=== PATIENT | female | born 1935 | race Caucasian/White ===

== ENCOUNTER → 2017-11-14 16:33 | Outpatient (CLI) | payer MEDICARE, OTHER, SELFPAY ==
--- NOTE | 2017-11-14 | DI.RAD.S_ITS ---
PROCEDURE: XR FOOT LT MIN 3V INDICATIONS: 82 year-old female with dorsal left foot pain. TECHNIQUE: 3 views of the foot were acquired. COMPARISON: None. FINDINGS: Bones: No fractures or dislocations. No suspicious bony lesions. Soft tissues: No tibiotalar joint effusion. Achilles tendon appears normal. IMPRESSION: No imaging explanation for dorsal left foot pain. Dictated by: Bunny Blair M.D. on 11/15/2017 at 7:35 Approved by: Bunny Blair M.D. on 11/15/2017 at 7:36
--- NOTE | 2017-11-14 | DI.RAD.S_ITS ---
PROCEDURE: XR ANKLE LT MIN 3V INDICATIONS: 82 year-old female with anterior left ankle pain. TECHNIQUE: 3 views of the ankle were acquired. COMPARISON: None. FINDINGS: Bones: No fractures or dislocations. Ankle mortise is normally aligned. No tibiotalar joint degeneration. No suspicious bony lesions. Soft tissues: No tibiotalar joint effusion. Achilles tendon appears normal. IMPRESSION: No imaging explanation for left ankle pain. Dictated by: Bunny Blair M.D. on 11/15/2017 at 7:36 Approved by: Bunny Blair M.D. on 11/15/2017 at 7:37
== END ==
PROVIDERS: PCP Family Medicine; Visit Provider Family Medicine
DX: M25.572 Pain in left ankle and joints of left foot (principal)
CPT/HCPCS: 73610; 73630

== ENCOUNTER 2018-02-08 15:14 | Emergency (ER) | payer MEDICARE, OTHER, SELFPAY ==
[2018-02-08] VITALS (9 sets, daily range): BP systolic 103–156; BP diastolic 54–97; PULSE 66–92; RESP 12–21; TEMP 37; O2SAT 95–100
--- NOTE | 2018-02-08 15:27 | DI.CT.S_ITS ---
PROCEDURE: CT HEAD/BRAIN WO CON INDICATIONS: found down altered mental status TECHNIQUE: Noncontrast 4.5 mm thick angled axial sections acquired from the foramen magnum to the vertex, with coronal and sagittal reformats. For radiation dose reduction, the following was used: automated exposure control, adjustment of mA and/or kV according to patient size. COMPARISON: [facility], CR, XR CHEST 1V, 02/08/2018, 15:18. [facility], CT, HEAD WITHOUT CONTRAST, 05/06/2017, 14:45. FINDINGS: Image quality: There is motion artifact seen involving the anterior aspects of this scan. CSF spaces: Basal cisterns are patent. No extra-axial fluid collections. The ventricles are symmetric in size and shape. Brain: No intracranial bleeds or masses. There is cerebral volume loss for age, with resultant ventricular and sulcal prominence. There are periventricular and deep white matter chronic small vessel ischemic changes. There is intracranial internal carotid artery atherosclerosis. Skull and face: Calvarium and visualized facial bones appear intact, without suspicious lesions. Incidental note is made of hyperostosis frontalis. This is not considered to be pathologic in a woman of this age. Sinuses: Visualized sinuses and mastoids are clear. IMPRESSION: No acute intracranial hemorrhage can be seen. No acute intracranial process is seen. Note is made of age-appropriate brain parenchymal volume loss and chronic small vessel ischemic changes. No displaced calvarial fracture. Dictated by: Juan Evans M.D. on 02/08/2018 at 15:03 Approved by: Juan Evans M.D. on 02/08/2018 at 15:04
--- NOTE | 2018-02-08 15:27 | DI.RAD.S_ITS ---
PROCEDURE: XR CHEST 1V INDICATIONS: altered mental status TECHNIQUE: One view of the chest was acquired. COMPARISON: [facility], CT, CT HEAD/BRAIN WO CON, 02/08/2018, 15:39. [facility], CR, CHEST 2 VIEW, 09/27/2006, 16:03. [facility], , CHEST 2 VIEW, 10/17/2012, 19:46. FINDINGS: Surgical changes and devices: None. Lungs and pleura: No pleural effusions or pneumothorax. Lungs are clear. Mediastinum: The cardiac contours are within normal limits. The aorta demonstrates calcification and tortuosity. Bones and chest wall: Age-appropriate bony degenerative changes are seen. No suspicious bony lesions. Overlying soft tissues appear unremarkable. IMPRESSION: Portable chest within normal limits. Dictated by: Juan Evans M.D. on 02/08/2018 at 15:02 Approved by: Juan Evans M.D. on 02/08/2018 at 15:03
--- NOTE | 2018-02-08 15:47 | PC.NURSE ---
patient reports that she fell around 2am while she was up making soup and has been confused since. patients daughter went to visit found her confused, thought her blood sugar might have been low and got her something to eat but the patient was still confused.
--- NOTE | 2018-02-08 16:13 | ED.NEUROSD ---
HPI - Neuro Symptoms/Deficit General Chief Complaint: Neuro Symptoms/Deficit Stated Complaint: GLF/Confusion Time Seen by Provider: 02/08/18 15:22 Source: patient, family, EMS and old records reviewed Mode of arrival: EMS Limitations: altered mental status History of Present Illness HPI Narrative: Patient is an 82-year-old female brought in by EMS for altered mental status. She has extremely poor historian. 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 He was found in bed and she was on the floor both unable to get up. She remains extremely confused able to follow commands very pleasant not combative.. not able to give much more of a history. She previously was found down April 2017 with a broken ankle which required surgery. She was noted to be confused at that time as well. Related Data Home Medications Medication Instructions Recorded Confirmed alprazolam [Xanax] 0 mg PO PRN #0 12/18/12 02/08/18 metformin [Glucophage XR] 500 mg PO QID #0 12/18/12 02/08/18 glipizide [Glucotrol XL] 5 mg PO TID 02/08/18 02/08/18 metoprolol tartrate 50 mg PO BID 02/08/18 02/08/18 omeprazole 20 mg PO DAILY 02/08/18 02/08/18 thyroid (pork) [[place] Thyroid] 90 mg PO BID 02/08/18 02/08/18 Allergies Allergy/AdvReac Type Severity Reaction Status Date / Time ciprofloxacin [From CIPRO] Allergy Intermediate Unverified 09/20/17 12:56 codeine [CODEINE] Allergy Intermediate Unverified 09/20/17 12:56 Sulfa (Sulfonamide Allergy Mild Unverified 09/20/17 12:56 Antibiotics) [SULFA (SULFONAMIDE ANTIBIOTICS)] Review of Systems Review of Systems Unable to obtain due to patient's mental status Exam Initial Vital Signs Initial Vital Signs: Vital Signs Temperature 98.6 F 02/08/18 15:00 Pulse Rate 92 H 02/08/18 15:00 Respiratory Rate 20 02/08/18 15:00 Blood Pressure 153/57 H 02/08/18 15:00 Pulse Oximetry 99 02/08/18 15:00 Const General: cooperative Nutritional Appearance: average body habitus Orientation: alert and awake HENCA Head: normal to inspection, normocephalic and atraumatic Ears: hearing grossly normal bilaterally Eyes General: appearance normal, both eyes and all related structures Neck Neck: normal visual inspection, full ROM, no meningeal signs and trachea midline Chest Chest: normal inspection of the chest Resp Effort & Inspection: normal respiratory effort Cardio Rate: regular rate Rhythm: regular rhythm Heart Sounds: S1 normal and S2 normal GI Inspection: normal to inspection Palpation: soft, No tender and No ascites Back/Spine/Pelvis Back: normal to inspection and back tenderness Skin General: no rashes or lesions noted Lesions: no lesions Rashes: no rashes Neuro General: alert, awake and oriented x3 Cranial Nerves: CN's II-XI intact bilaterally Course Orders Ordered: Discontinued Medications Sodium Chloride (Normal Saline 0.9%) 1,000 mls @ 150 mls/hr IV CONT MARIA Last Infusion: 02/08/18 19:13 Dose: 0 mls/hr Admin: 02/08/18 16:29 Dose: 150 mls/hr Vital Signs - 8 hr 02/08/18 15:00 02/08/18 15:44 Temperature 98.6 F Pulse Rate 92 H Respiratory Rate 20 Blood Pressure 153/57 H Blood Pressure [Right Arm] 103/72 Pulse Oximetry 99 MDM - Neuro Symptoms/Deficit Lab Data Attestation: I reviewed the patient's lab results. Result diagrams: 02/08/18 17:38 02/08/18 16:20 Lab Results 02/08/18 02/08/18 02/08/18 Range/Units 16:20 16:20 16:20 WBC (4.5-11.0) X10^3/uL RBC (4.0-5.2) X10^6/uL Hgb (12.0-16.0) g/dL Hct (36-46) % MCV (80-100) fL MCH (26-34) PG MCHC (30-36) % RDW (11.6-14.8) % Plt Count (150-400) X10^3/uL Neut % (Auto) (50-75) % Lymph % (Auto) (25-40) % [place] % (Auto) (3-14) % Eos % (Auto) (2-4) % Baso % (Auto) (0-2) % Neut # (Auto) (4409-1447) /uL PT 12.8 H (10.1-12.7) SECONDS INR 1.2 (0.9-1.3) APTT 24 L (26.4-36.2) SECONDS Sodium 135 L (137-145) mmol/L Potassium 3.5 (3.4-5.1) mmol/L Chloride 98 (98-107) mmol/L Carbon Dioxide 23 (22-32) mmol/L BUN 32 H (7-17) mg/dL Creatinine 0.70 (0.52-1.04) mg/dL Estimated GFR > 60.0 (>60) mL/min BUN/Creatinine Ratio 45.7 H (6-22) Glucose 181 H (80-110) mg/dL Lactate 1.0 (0.7-2.1) mmol/L Calcium 9.7 (8.4-10.2) mg/dL Total Bilirubin 1.3 (0.2-1.3) mg/dL AST 36 (14-36) IU/L ALT 30 (9-52) IU/L Alkaline Phosphatase 88 (38-126) U/L Total Creatine Kinase 251 H (30-135) U/L CK-MB (CK-2) 5.27 H (<2.37) ng/mL CK-MB (CK-2) Rel Index 2.1 (1.5-5.0) % Troponin I < 0.012 (0.01-0.034) ng/mL Total Protein 8.0 (6.3-8.2) g/dL Albumin 4.2 (3.5-5.0) g/dL Globulin 3.8 (1.7-4.1) g/dL Albumin/Globulin Ratio 1.1 (1.0-2.8) Procalcitonin (<0.5) ng/mL TSH (0.47-4.68) uIU/mL Prolactin 24.8 H (3.0-18.6) ng/mL Urine Color Urine Appearance Urine pH (4.5-8.0) Ur Specific [place] (1.000-1.035) Urine Protein (Negative) Urine Glucose (UA) (Normal) g/dL Urine Ketones (NEGATIVE) Urine Occult Blood (Negative) Urine Nitrate (Negative) Urine Bilirubin (NEGATIVE) Urine Ictotest (Negative) Urine Urobilinogen (0.2) E.U./dL Ur Leukocyte Esterase (NEGATIVE) Urine RBC (0-5/HPF) Urine WBC (0-5/HPF) Ur Squamous Epith Cells Urine Bacteria (None) Hyaline Casts (None) Ur Culture Indicated? Micro UA Comment Salicylates < 1.0 (<20) mg/dL Urine Opiates Screen (Negative) Ur Oxycodone Screen (Negative) Urine Methadone Screen (Negative) Acetaminophen < 10 L (10-30) ug/mL Ur Barbiturates Screen (Negative) U Tricyclic Antidepress (Negative) Ur Phencyclidine Scrn (Negative) Ur Amphetamines Screen (Negative) U Methamphetamines Scrn (Negative) Ur MDMA Scrn (Ecstasy) (Negative) U Benzodiazepines Scrn (Negative) Urine Cocaine Screen (Negative) U Marijuana (THC) Screen (Negative) Ethyl Alcohol < 10 mg/dL 02/08/18 02/08/18 02/08/18 Range/Units 16:20 16:20 16:20 WBC (4.5-11.0) X10^3/uL RBC (4.0-5.2) X10^6/uL Hgb (12.0-16.0) g/dL Hct (36-46) % MCV (80-100) fL MCH (26-34) PG MCHC (30-36) % RDW (11.6-14.8) % Plt Count (150-400) X10^3/uL Neut % (Auto) (50-75) % Lymph % (Auto) (25-40) % [place] % (Auto) (3-14) % Eos % (Auto) (2-4) % Baso % (Auto) (0-2) % Neut # (Auto) (3065-0348) /uL PT (10.1-12.7) SECONDS INR (0.9-1.3) APTT (26.4-36.2) SECONDS Sodium (137-145) mmol/L Potassium (3.4-5.1) mmol/L Chloride (98-107) mmol/L Carbon Dioxide (22-32) mmol/L BUN (7-17) mg/dL Creatinine (0.52-1.04) mg/dL Estimated GFR (>60) mL/min BUN/Creatinine Ratio (6-22) Glucose (80-110) mg/dL Lactate (0.7-2.1) mmol/L Calcium (8.4-10.2) mg/dL Total Bilirubin (0.2-1.3) mg/dL AST (14-36) IU/L ALT (9-52) IU/L Alkaline Phosphatase (38-126) U/L Total Creatine Kinase Cancelled (30-135) U/L CK-MB (CK-2) Cancelled (<2.37) ng/mL CK-MB (CK-2) Rel Index (1.5-5.0) % Troponin I (0.01-0.034) ng/mL Total Protein (6.3-8.2) g/dL Albumin (3.5-5.0) g/dL Globulin (1.7-4.1) g/dL Albumin/Globulin Ratio (1.0-2.8) Procalcitonin 0.07 (<0.5) ng/mL TSH 1.32 (0.47-4.68) uIU/mL Prolactin (3.0-18.6) ng/mL Urine Color Urine Appearance Urine pH (4.5-8.0) Ur Specific [place] (1.000-1.035) Urine Protein (Negative) Urine Glucose (UA) (Normal) g/dL Urine Ketones (NEGATIVE) Urine Occult Blood (Negative) Urine Nitrate (Negative) Urine Bilirubin (NEGATIVE) Urine Ictotest (Negative) Urine Urobilinogen (0.2) E.U./dL Ur Leukocyte Esterase (NEGATIVE) Urine RBC (0-5/HPF) Urine WBC (0-5/HPF) Ur Squamous Epith Cells Urine Bacteria (None) Hyaline Casts (None) Ur Culture Indicated? Micro UA Comment Salicylates (<20) mg/dL Urine Opiates Screen (Negative) Ur Oxycodone Screen (Negative) Urine Methadone Screen (Negative) Acetaminophen (10-30) ug/mL Ur Barbiturates Screen (Negative) U Tricyclic Antidepress (Negative) Ur Phencyclidine Scrn (Negative) Ur Amphetamines Screen (Negative) U Methamphetamines Scrn (Negative) Ur MDMA Scrn (Ecstasy) (Negative) U Benzodiazepines Scrn (Negative) Urine Cocaine Screen (Negative) U Marijuana (THC) Screen (Negative) Ethyl Alcohol mg/dL 02/08/18 02/08/18 02/08/18 Range/Units 16:36 16:36 17:38 WBC 4.0 L (4.5-11.0) X10^3/uL RBC 4.67 (4.0-5.2) X10^6/uL Hgb 12.5 (12.0-16.0) g/dL Hct 37.5 (36-46) % MCV 80.2 (80-100) fL MCH 26.7 (26-34) PG MCHC 33.3 (30-36) % RDW 17.0 H (11.6-14.8) % Plt Count 249 (150-400) X10^3/uL Neut % (Auto) 52.1 (50-75) % Lymph % (Auto) 27.6 (25-40) % [place] % (Auto) 19.6 H (3-14) % Eos % (Auto) 0.2 L (2-4) % Baso % (Auto) 0.5 (0-2) % Neut # (Auto) 2100 L (4735-1426) /uL PT (10.1-12.7) SECONDS INR (0.9-1.3) APTT (26.4-36.2) SECONDS Sodium (137-145) mmol/L Potassium (3.4-5.1) mmol/L Chloride (98-107) mmol/L Carbon Dioxide (22-32) mmol/L BUN (7-17) mg/dL Creatinine (0.52-1.04) mg/dL Estimated GFR (>60) mL/min BUN/Creatinine Ratio (6-22) Glucose (80-110) mg/dL Lactate (0.7-2.1) mmol/L Calcium (8.4-10.2) mg/dL Total Bilirubin (0.2-1.3) mg/dL AST (14-36) IU/L ALT (9-52) IU/L Alkaline Phosphatase (38-126) U/L Total Creatine Kinase (30-135) U/L CK-MB (CK-2) (<2.37) ng/mL CK-MB (CK-2) Rel Index (1.5-5.0) % Troponin I (0.01-0.034) ng/mL Total Protein (6.3-8.2) g/dL Albumin (3.5-5.0) g/dL Globulin (1.7-4.1) g/dL Albumin/Globulin Ratio (1.0-2.8) Procalcitonin (<0.5) ng/mL TSH (0.47-4.68) uIU/mL Prolactin (3.0-18.6) ng/mL Urine Color Yellow Urine Appearance Sl cloudy Urine pH 5.0 (4.5-8.0) Ur Specific [place] 1.025 (1.000-1.035) Urine Protein Trace H (Negative) Urine Glucose (UA) Negative (Normal) g/dL Urine Ketones 1+ H (NEGATIVE) Urine Occult Blood Negative (Negative) Urine Nitrate Negative (Negative) Urine Bilirubin 1+ H (NEGATIVE) Urine Ictotest Negative (Negative) Urine Urobilinogen 0.2 (0.2) E.U./dL Ur Leukocyte Esterase Negative (NEGATIVE) Urine RBC 0-1/hpf (0-5/HPF) Urine WBC 0-1/hpf (0-5/HPF) Ur Squamous Epith Cells 0-1 /hpf Urine Bacteria None seen (None) Hyaline Casts 5-10/lpf (None) Ur Culture Indicated? Cult not indicated Micro UA Comment Not Reportable Salicylates (<20) mg/dL Urine Opiates Screen Negative (Negative) Ur Oxycodone Screen Negative (Negative) Urine Methadone Screen Negative (Negative) Acetaminophen (10-30) ug/mL Ur Barbiturates Screen Negative (Negative) U Tricyclic Antidepress Negative (Negative) Ur Phencyclidine Scrn Negative (Negative) Ur Amphetamines Screen Negative (Negative) U Methamphetamines Scrn Negative (Negative) Ur MDMA Scrn (Ecstasy) Negative (Negative) U Benzodiazepines Scrn Negative (Negative) Urine Cocaine Screen Negative (Negative) U Marijuana (THC) Screen Negative (Negative) Ethyl Alcohol mg/dL ECG Data Attestation: I personally reviewed and interpreted this ECG as follows: Prior ECG tracings: available for review Interpretation: Normal sinus rhythm rate [address] changes no T-wave inversions appear interval 170 QTC 4 9 similar to previous EKG MDM Narrative Medical decision making narrative: The patient has baseline confusion which comes and goes. She is confused very pleasant and non combative. On no sign of infection or other cause of confusion. Son states that she does have episodes like this. Son and daughter are concerned he has a are not able to care for themselves. 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 She was unable to walk at home get herself up off the floor. She is ambulatory in the ED. I have discussed the case with the hospitalist, Dr. Guzman, for possible admission however patient does not meet any criteria this time. Recommend outpatient encouragement for assisted living Discharge Plan Departure Patient Disposition: Home Clinical Impression: Encephalopathy chronic Discharge Date/Time: 02/08/18 20:37 Interventions: ED Discharge Assessment Last Done: 02/08/18 20:35 Instructions: Dementia Activity Restrictions/Additional Instructions: *You have been diagnosed with possible dementia, confusion *What to do: At this time extensive workup in the emergency department including blood work, cat scan did not reveal any infection or other cause of confusion. Does not meet admission criteria at this time. *Continue to take medications as directed *Follow up with your primary care provider in 2-3 days *Return to ER if you should have any new, worsening or concerning symptoms Prescriptions: No Action alprazolam [Xanax] 0.5 MG tablet PO PRN Qty: 0 RF: 0 metformin [Glucophage XR] 500 MG tablet extended release 24 hr 500 mg PO QID Qty: 0 RF: 0 glipizide [Glucotrol XL] 5 MG tablet extended release 24hr 5 mg PO TID RF: 0 metoprolol tartrate 50 mg Tablet 50 mg PO BID RF: 0 omeprazole 20 mg Capsule,Delayed Release(Dr/Ec) 20 mg PO DAILY RF: 0 thyroid (pork) [[place] Thyroid] 90 mg Tablet 90 mg PO BID RF: 0 Referrals: Don John MD [Primary Care Provider] -
--- NOTE | 2018-02-08 16:18 | ED_ITS ---
HPI - Neuro Symptoms/Deficit General Chief Complaint: Neuro Symptoms/Deficit Stated Complaint: GLF/Confusion Time Seen by Provider: 02/08/18 15:22 Source: patient, family, EMS and old records reviewed Mode of arrival: EMS Limitations: altered mental status History of Present Illness HPI Narrative: Patient is an 82-year-old female brought in by EMS for altered mental status. She has extremely poor historian. 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 He was found in bed and she was on the floor both unable to get up. She remains extremely confused able to follow commands very pleasant not combative.. not able to give much more of a history. She previously was found down April 2017 with a broken ankle which required surgery. She was noted to be confused at that time as well. Related Data Home Medications Medication Instructions Recorded Confirmed alprazolam [Xanax] 0 mg PO PRN #0 12/18/12 02/08/18 metformin [Glucophage XR] 500 mg PO QID #0 12/18/12 02/08/18 glipizide [Glucotrol XL] 5 mg PO TID 02/08/18 02/08/18 metoprolol tartrate 50 mg PO BID 02/08/18 02/08/18 omeprazole 20 mg PO DAILY 02/08/18 02/08/18 thyroid (pork) [[place] Thyroid] 90 mg PO BID 02/08/18 02/08/18 Allergies Allergy/AdvReac Type Severity Reaction Status Date / Time ciprofloxacin [From CIPRO] Allergy Intermediate Unverified 09/20/17 12:56 codeine [CODEINE] Allergy Intermediate Unverified 09/20/17 12:56 Sulfa (Sulfonamide Allergy Mild Unverified 09/20/17 12:56 Antibiotics) [SULFA (SULFONAMIDE ANTIBIOTICS)] Review of Systems Review of Systems Unable to obtain due to patient's mental status Exam Initial Vital Signs Initial Vital Signs: Vital Signs Temperature 98.6 F 02/08/18 15:00 Pulse Rate 92 H 02/08/18 15:00 Respiratory Rate 20 02/08/18 15:00 Blood Pressure 153/57 H 02/08/18 15:00 Pulse Oximetry 99 02/08/18 15:00 Const General: cooperative Nutritional Appearance: average body habitus Orientation: alert and awake HENNV Head: normal to inspection, normocephalic and atraumatic Ears: hearing grossly normal bilaterally Eyes General: appearance normal, both eyes and all related structures Neck Neck: normal visual inspection, full ROM, no meningeal signs and trachea midline Chest Chest: normal inspection of the chest Resp Effort & Inspection: normal respiratory effort Cardio Rate: regular rate Rhythm: regular rhythm Heart Sounds: S1 normal and S2 normal GI Inspection: normal to inspection Palpation: soft, No tender and No ascites Back/Spine/Pelvis Back: normal to inspection and back tenderness Skin General: no rashes or lesions noted Lesions: no lesions Rashes: no rashes Neuro General: alert, awake and oriented x3 Cranial Nerves: CN's II-XI intact bilaterally Course Orders Ordered: Discontinued Medications Sodium Chloride (Normal Saline 0.9%) 1,000 mls @ 150 mls/hr IV CONT MARIA Last Infusion: 02/08/18 19:13 Dose: 0 mls/hr Admin: 02/08/18 16:29 Dose: 150 mls/hr Vital Signs - 8 hr 02/08/18 15:00 02/08/18 15:44 Temperature 98.6 F Pulse Rate 92 H Respiratory Rate 20 Blood Pressure 153/57 H Blood Pressure [Right Arm] 103/72 Pulse Oximetry 99 MDM - Neuro Symptoms/Deficit Lab Data Attestation: I reviewed the patient's lab results. Result diagrams: 02/08/18 17:38 02/08/18 16:20 Lab Results 02/08/18 02/08/18 02/08/18 Range/Units 16:20 16:20 16:20 WBC (4.5-11.0) X10^3/uL RBC (4.0-5.2) X10^6/uL Hgb (12.0-16.0) g/dL Hct (36-46) % MCV (80-100) fL MCH (26-34) PG MCHC (30-36) % RDW (11.6-14.8) % Plt Count (150-400) X10^3/uL Neut % (Auto) (50-75) % Lymph % (Auto) (25-40) % [place] % (Auto) (3-14) % Eos % (Auto) (2-4) % Baso % (Auto) (0-2) % Neut # (Auto) (5369-3417) /uL PT 12.8 H (10.1-12.7) SECONDS INR 1.2 (0.9-1.3) APTT 24 L (26.4-36.2) SECONDS Sodium 135 L (137-145) mmol/L Potassium 3.5 (3.4-5.1) mmol/L Chloride 98 (98-107) mmol/L Carbon Dioxide 23 (22-32) mmol/L BUN 32 H (7-17) mg/dL Creatinine 0.70 (0.52-1.04) mg/dL Estimated GFR > 60.0 (>60) mL/min BUN/Creatinine Ratio 45.7 H (6-22) Glucose 181 H (80-110) mg/dL Lactate 1.0 (0.7-2.1) mmol/L Calcium 9.7 (8.4-10.2) mg/dL Total Bilirubin 1.3 (0.2-1.3) mg/dL AST 36 (14-36) IU/L ALT 30 (9-52) IU/L Alkaline Phosphatase 88 (38-126) U/L Total Creatine Kinase 251 H (30-135) U/L CK-MB (CK-2) 5.27 H (<2.37) ng/mL CK-MB (CK-2) Rel Index 2.1 (1.5-5.0) % Troponin I < 0.012 (0.01-0.034) ng/mL Total Protein 8.0 (6.3-8.2) g/dL Albumin 4.2 (3.5-5.0) g/dL Globulin 3.8 (1.7-4.1) g/dL Albumin/Globulin Ratio 1.1 (1.0-2.8) Procalcitonin (<0.5) ng/mL TSH (0.47-4.68) uIU/mL Prolactin 24.8 H (3.0-18.6) ng/mL Urine Color Urine Appearance Urine pH (4.5-8.0) Ur Specific [place] (1.000-1.035) Urine Protein (Negative) Urine Glucose (UA) (Normal) g/dL Urine Ketones (NEGATIVE) Urine Occult Blood (Negative) Urine Nitrate (Negative) Urine Bilirubin (NEGATIVE) Urine Ictotest (Negative) Urine Urobilinogen (0.2) E.U./dL Ur Leukocyte Esterase (NEGATIVE) Urine RBC (0-5/HPF) Urine WBC (0-5/HPF) Ur Squamous Epith Cells Urine Bacteria (None) Hyaline Casts (None) Ur Culture Indicated? Micro UA Comment Salicylates < 1.0 (<20) mg/dL Urine Opiates Screen (Negative) Ur Oxycodone Screen (Negative) Urine Methadone Screen (Negative) Acetaminophen < 10 L (10-30) ug/mL Ur Barbiturates Screen (Negative) U Tricyclic Antidepress (Negative) Ur Phencyclidine Scrn (Negative) Ur Amphetamines Screen (Negative) U Methamphetamines Scrn (Negative) Ur MDMA Scrn (Ecstasy) (Negative) U Benzodiazepines Scrn (Negative) Urine Cocaine Screen (Negative) U Marijuana (THC) Screen (Negative) Ethyl Alcohol < 10 mg/dL 02/08/18 02/08/18 02/08/18 Range/Units 16:20 16:20 16:20 WBC (4.5-11.0) X10^3/uL RBC (4.0-5.2) X10^6/uL Hgb (12.0-16.0) g/dL Hct (36-46) % MCV (80-100) fL MCH (26-34) PG MCHC (30-36) % RDW (11.6-14.8) % Plt Count (150-400) X10^3/uL Neut % (Auto) (50-75) % Lymph % (Auto) (25-40) % [place] % (Auto) (3-14) % Eos % (Auto) (2-4) % Baso % (Auto) (0-2) % Neut # (Auto) (0935-5962) /uL PT (10.1-12.7) SECONDS INR (0.9-1.3) APTT (26.4-36.2) SECONDS Sodium (137-145) mmol/L Potassium (3.4-5.1) mmol/L Chloride (98-107) mmol/L Carbon Dioxide (22-32) mmol/L BUN (7-17) mg/dL Creatinine (0.52-1.04) mg/dL Estimated GFR (>60) mL/min BUN/Creatinine Ratio (6-22) Glucose (80-110) mg/dL Lactate (0.7-2.1) mmol/L Calcium (8.4-10.2) mg/dL Total Bilirubin (0.2-1.3) mg/dL AST (14-36) IU/L ALT (9-52) IU/L Alkaline Phosphatase (38-126) U/L Total Creatine Kinase Cancelled (30-135) U/L CK-MB (CK-2) Cancelled (<2.37) ng/mL CK-MB (CK-2) Rel Index (1.5-5.0) % Troponin I (0.01-0.034) ng/mL Total Protein (6.3-8.2) g/dL Albumin (3.5-5.0) g/dL Globulin (1.7-4.1) g/dL Albumin/Globulin Ratio (1.0-2.8) Procalcitonin 0.07 (<0.5) ng/mL TSH 1.32 (0.47-4.68) uIU/mL Prolactin (3.0-18.6) ng/mL Urine Color Urine Appearance Urine pH (4.5-8.0) Ur Specific [place] (1.000-1.035) Urine Protein (Negative) Urine Glucose (UA) (Normal) g/dL Urine Ketones (NEGATIVE) Urine Occult Blood (Negative) Urine Nitrate (Negative) Urine Bilirubin (NEGATIVE) Urine Ictotest (Negative) Urine Urobilinogen (0.2) E.U./dL Ur Leukocyte Esterase (NEGATIVE) Urine RBC (0-5/HPF) Urine WBC (0-5/HPF) Ur Squamous Epith Cells Urine Bacteria (None) Hyaline Casts (None) Ur Culture Indicated? Micro UA Comment Salicylates (<20) mg/dL Urine Opiates Screen (Negative) Ur Oxycodone Screen (Negative) Urine Methadone Screen (Negative) Acetaminophen (10-30) ug/mL Ur Barbiturates Screen (Negative) U Tricyclic Antidepress (Negative) Ur Phencyclidine Scrn (Negative) Ur Amphetamines Screen (Negative) U Methamphetamines Scrn (Negative) Ur MDMA Scrn (Ecstasy) (Negative) U Benzodiazepines Scrn (Negative) Urine Cocaine Screen (Negative) U Marijuana (THC) Screen (Negative) Ethyl Alcohol mg/dL 02/08/18 02/08/18 02/08/18 Range/Units 16:36 16:36 17:38 WBC 4.0 L (4.5-11.0) X10^3/uL RBC 4.67 (4.0-5.2) X10^6/uL Hgb 12.5 (12.0-16.0) g/dL Hct 37.5 (36-46) % MCV 80.2 (80-100) fL MCH 26.7 (26-34) PG MCHC 33.3 (30-36) % RDW 17.0 H (11.6-14.8) % Plt Count 249 (150-400) X10^3/uL Neut % (Auto) 52.1 (50-75) % Lymph % (Auto) 27.6 (25-40) % [place] % (Auto) 19.6 H (3-14) % Eos % (Auto) 0.2 L (2-4) % Baso % (Auto) 0.5 (0-2) % Neut # (Auto) 2100 L (2242-8032) /uL PT (10.1-12.7) SECONDS INR (0.9-1.3) APTT (26.4-36.2) SECONDS Sodium (137-145) mmol/L Potassium (3.4-5.1) mmol/L Chloride (98-107) mmol/L Carbon Dioxide (22-32) mmol/L BUN (7-17) mg/dL Creatinine (0.52-1.04) mg/dL Estimated GFR (>60) mL/min BUN/Creatinine Ratio (6-22) Glucose (80-110) mg/dL Lactate (0.7-2.1) mmol/L Calcium (8.4-10.2) mg/dL Total Bilirubin (0.2-1.3) mg/dL AST (14-36) IU/L ALT (9-52) IU/L Alkaline Phosphatase (38-126) U/L Total Creatine Kinase (30-135) U/L CK-MB (CK-2) (<2.37) ng/mL CK-MB (CK-2) Rel Index (1.5-5.0) % Troponin I (0.01-0.034) ng/mL Total Protein (6.3-8.2) g/dL Albumin (3.5-5.0) g/dL Globulin (1.7-4.1) g/dL Albumin/Globulin Ratio (1.0-2.8) Procalcitonin (<0.5) ng/mL TSH (0.47-4.68) uIU/mL Prolactin (3.0-18.6) ng/mL Urine Color Yellow Urine Appearance Sl cloudy Urine pH 5.0 (4.5-8.0) Ur Specific [place] 1.025 (1.000-1.035) Urine Protein Trace H (Negative) Urine Glucose (UA) Negative (Normal) g/dL Urine Ketones 1+ H (NEGATIVE) Urine Occult Blood Negative (Negative) Urine Nitrate Negative (Negative) Urine Bilirubin 1+ H (NEGATIVE) Urine Ictotest Negative (Negative) Urine Urobilinogen 0.2 (0.2) E.U./dL Ur Leukocyte Esterase Negative (NEGATIVE) Urine RBC 0-1/hpf (0-5/HPF) Urine WBC 0-1/hpf (0-5/HPF) Ur Squamous Epith Cells 0-1 /hpf Urine Bacteria None seen (None) Hyaline Casts 5-10/lpf (None) Ur Culture Indicated? Cult not indicated Micro UA Comment Not Reportable Salicylates (<20) mg/dL Urine Opiates Screen Negative (Negative) Ur Oxycodone Screen Negative (Negative) Urine Methadone Screen Negative (Negative) Acetaminophen (10-30) ug/mL Ur Barbiturates Screen Negative (Negative) U Tricyclic Antidepress Negative (Negative) Ur Phencyclidine Scrn Negative (Negative) Ur Amphetamines Screen Negative (Negative) U Methamphetamines Scrn Negative (Negative) Ur MDMA Scrn (Ecstasy) Negative (Negative) U Benzodiazepines Scrn Negative (Negative) Urine Cocaine Screen Negative (Negative) U Marijuana (THC) Screen Negative (Negative) Ethyl Alcohol mg/dL ECG Data Attestation: I personally reviewed and interpreted this ECG as follows: Prior ECG tracings: available for review Interpretation: Normal sinus rhythm rate [address] changes no T-wave inversions appear interval 170 QTC 4 9 similar to previous EKG MDM Narrative Medical decision making narrative: The patient has baseline confusion which comes and goes. She is confused very pleasant and non combative. On no sign of infection or other cause of confusion. Son states that she does have episodes like this. Son and daughter are concerned he has a are not able to care for themselves. 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 She was unable to walk at home get herself up off the floor. She is ambulatory in the ED. I have discussed the case with the hospitalist, Dr. Gumzan, for possible admission however patient does not meet any criteria this time. Recommend outpatient encouragement for assisted living Discharge Plan Departure Patient Disposition: Home Clinical Impression: Encephalopathy chronic Discharge Date/Time: 02/08/18 20:37 Interventions: ED Discharge Assessment Last Done: 02/08/18 20:35 Instructions: Dementia Activity Restrictions/Additional Instructions: *You have been diagnosed with possible dementia, confusion *What to do: At this time extensive workup in the emergency department including blood work, cat scan did not reveal any infection or other cause of confusion. Does not meet admission criteria at this time. *Continue to take medications as directed *Follow up with your primary care provider in 2-3 days *Return to ER if you should have any new, worsening or concerning symptoms Prescriptions: No Action alprazolam [Xanax] 0.5 MG tablet PO PRN Qty: 0 RF: 0 metformin [Glucophage XR] 500 MG tablet extended release 24 hr 500 mg PO QID Qty: 0 RF: 0 glipizide [Glucotrol XL] 5 MG tablet extended release 24hr 5 mg PO TID RF: 0 metoprolol tartrate 50 mg Tablet 50 mg PO BID RF: 0 omeprazole 20 mg Capsule,Delayed Release(Dr/Ec) 20 mg PO DAILY RF: 0 thyroid (pork) [[place] Thyroid] 90 mg Tablet 90 mg PO BID RF: 0 Referrals: Don John MD [Primary Care Provider] -
[2018-02-08] MEDS: SODIUM CHLORIDE 0.9% 1,000 ML 150 ML IV (16:29)
[2018-02-08 16:58] LABS: INR 1.2 (0.9-1.3); Prothrombin Time 12.8 SECONDS (10.1-12.7)
[2018-02-08 17:00] LABS: PTT Partial Thromboplastin Tim 24 SECONDS (26.4-36.2)
[2018-02-08 17:04] LABS: Acetaminophen < 10 ug/mL (10-30); Alanine Aminotransferase 30 IU/L (9-52); Albumin 4.2 g/dL (3.5-5.0); Albumin Globulin Ratio 1.1 (1.0-2.8); Alkaline Phosphatase 88 U/L (38-126); Aspartate Aminotransferase 36 IU/L (14-36); BUN Creatinine Ratio 45.7 (6-22); Bilirubin Total 1.3 mg/dL (0.2-1.3); Blood Urea Nitrogen 32 mg/dL (7-17); Calcium 9.7 mg/dL (8.4-10.2); Carbon Dioxide 23 mmol/L (22-32); Chloride 98 mmol/L (98-107); Estimated Glomerular Filt Rate > 60.0 mL/min (>60); Ethanol (ETOH) < 10 mg/dL; Globulin 3.8 g/dL (1.7-4.1); Glucose 181 mg/dL (80-110); HEMOLYSIS 17 (0-50); Potassium 3.5 mmol/L (3.4-5.1); Sodium 135 mmol/L (137-145)
[2018-02-08 17:06] LABS: Salicylate < 1.0 mg/dL (<20)
[2018-02-08 17:11] LABS: Urine Amphetamines Negative (Negative); Urine Barbiturates Negative (Negative); Urine Benzodiazepines Negative (Negative); Urine Cocaine Negative (Negative); Urine MDMA Negative (Negative); Urine Methadone Negative (Negative); Urine Methamphetamines Negative (Negative); Urine Morphine/Opi cutoff 2000 Negative (Negative); Urine Oxycodone Negative (Negative); Urine Phencyclidine Negative (Negative); Urine Tetrahydrocannabinol Negative (Negative); Urine Tricyclic Antidepressant Negative (Negative)
[2018-02-08 17:17] LABS: Troponin I < 0.012 ng/mL (0.01-0.034)
[2018-02-08 17:20] LABS: Prolactin 24.8 ng/mL (3.0-18.6)
[2018-02-08 17:30] LABS: Appearance Urine UA SL CLOUDY; Bacteria Urine None Seen; Bilirubin Urine UA 1+ (NEGATIVE); Color Urine UA YELLOW; Glucose Urine UA NEGATIVE (Normal); Ketones Urine UA 1+ (NEGATIVE); Leukocyte Esterase Urine UA NEGATIVE (NEGATIVE); Nitrite Urine UA Negative (Negative); Occult Blood Urine UA NEGATIVE (Negative); Protein Urine UA TRACE (Negative); Specific Gravity Urine UA 1.025 (1.000-1.035); Urobilinogen Urine UA 0.2 E.U./dL (0.2)
[2018-02-08 17:36] LABS: Thyroid Stimulating Hormone 1.32 uIU/mL (0.47-4.68)
--- NOTE | 2018-02-08 17:38 | CM.SWNOTE ---
ED TECHNICAL STENOGRAPHER NOTE: Pt and her were both brought into the hospital. It is unclear how long the situation occurring,b ut according to pt's daughter in law, Afia, there is concern that the coffee pot is left on, the home smells or urine, they are not bathing, and she is unsure if they are taking their medication and if they are paying bills on a regular basis. Evidently the bills used to be paid automatically, but pt thought there was identity thought and this was changed. It was not, and was due to her charging t hings on her discover card, but not remembering. Recent hx: Pt fell Thanks2016 and was at [facility] from Apr-Jul. Pt's son, Christiano cared for his father, for the 2 1/2 months, but due to the pt and her 's anger about their throwing out the urine soaked mattress and frequently being yelled at for suggestions and being accused of trying to take their money, they are not able to care for them again. At this time, they are still awaiting lab results, but pt's will be admitted. ED TECHNICAL STENOGRAPHER will update, discharge planners. Discharge Planning/Care Management ED Crisis Response Assessment Start: 02/08/18 17:35 Freq: Status: Active Protocol: Document 02/08/18 17:35 (Rec: 02/08/18 17:38 [id number]) ED Crisis Response Assessment TECHNICAL STENOGRAPHER Assessment Type Other Reason for TECHNICAL STENOGRAPHER Referral DC planning Referred by ED staff Presenting Problem Pt fell. According to pictures shared by ROBERT, pt and appear to be hoarders. Expressed concern that home has dirty clothes all over, has an ordor of urine and questions if pt and her who is also a pt are taking their medication properly. Pt was found on the floor by ROBERT and because neither could walk, they were brought in by EMS. Resources Provided [facility] resource book.
[2018-02-08 17:53] LABS: CKMB % Relative Index 2.1 % (1.5-5.0); Creatine Kinase 251 U/L (30-135); Creatine Kinase MB 5.27 ng/mL (<2.37)
[2018-02-08 17:54] LABS: Add Manual Diff / Slide Review NO; Basophils Percent Auto 0.5 % (0-2); Eosinophils Percent Auto 0.2 % (2-4); Hematocrit 37.5 % (36-46); Hemoglobin 12.5 g/dL (12.0-16.0); Lymphocytes Percent Auto 27.6 % (25-40); Mean Corpuscular HGB Conc 33.3 % (30-36); Mean Corpuscular Hemoglobin 26.7 PG (26-34); Mean Corpuscular Volume 80.2 fL (80-100); Monocytes Percent Auto 19.6 % (3-14); Neutrophils Absolute Auto 2100 /uL (3000-5900); Neutrophils Percent Auto 52.1 % (50-75); Platelet Count 249 X10^3/uL (150-400); Red Blood Cell Count 4.67 X10^6/uL (4.0-5.2)
[2018-02-08 18:02] LABS: Hyaline Casts Urine 5-10/LPF; Ictotest Urine Negative (Negative); RBC Urine 0-1/HPF (0-5/HPF); Squamous Epithelial Cell Urine 0-1 /HPF; WBC Urine 0-1/HPF (0-5/HPF)
[2018-02-08 18:03] LABS: Culture Indicated Urine Cult Not Indicated
[2018-02-08 18:10] LABS: Procalcitonin 0.07 ng/mL (<0.5)
--- NOTE | 2018-02-08 19:24 | PC.NURSE ---
Pt walked out of room with walker and a stanby assist. She walked with a steady gate and said she felt fine, except that she was hungry. Pt was returned to her room and set back on the bed with assistance.
--- NOTE | 2018-02-22 15:02 | CM.SWNOTE ---
ED DIRECTOR OF INFECTION PREVENTION NOTE: GROVE WORKER received a request from Gavin, mall plant caretaker, to call ABELINO Alfredo [phone] in response to APS report made whent his pt was in the emergency room on 02/08/18. GROVE WORKER called, spoke with Sayda and reinterated concerns stated in the report. Basically [id number] had expressed concerns about her [id number] and [id number]'s ability to continue to live independently. GROVE WORKER mentioned the report was placed due to concerns of self-neglect and whether this patient still had decisional capacity and could continue to safely live independently.
== END 2018-02-08 20:37 | disposition home or self-care (01) ==
PROVIDERS: Emergency Provider Emergency Medicine; Family Provider Family Medicine; PCP Family Medicine
DX: G93.49 Other encephalopathy (principal)
CPT/HCPCS: 36415; 70450; 71045; 80053; 80305; 80320; 80329; 81001; 82550; 82553; 82962; 83605; 84145; 84146; 84443; 84484; 85025; 85610; 85730; 87040; 87086; 93005; 93010; 93041; 96360; 96361; 99285; 99291; G0480

== ENCOUNTER 2019-02-18 20:23 | Inpatient (IN) | payer MEDICARE, OTHER, SELFPAY ==
[2019-02-18 20:33] VITALS: BP 181/68; PULSE 67; RESP 18; TEMP 36.7; O2SAT 98
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
--- NOTE | 2019-02-18 20:43 | DI.RAD.S_ITS ---
PROCEDURE: XR CHEST 1V INDICATIONS: altered mental status, found on floor TECHNIQUE: One view of the chest was acquired. COMPARISON: [facility], CR, XR CHEST 1V, 02/08/2018, 15:18. FINDINGS: Surgical changes and devices: None. Lungs and pleura: Lungs are clear. No pleural effusions or pneumothorax. Mediastinum: Mediastinal contours appear normal. Heart size is normal. Bones and chest wall: No suspicious bony lesions. Overlying soft tissues appear unremarkable. IMPRESSION: 1. No acute cardiopulmonary disease. Dictated by: Romario Rao M.D. on 02/18/2019 at 21:51 Approved by: Romario Roa M.D. on 02/18/2019 at 21:52
[2019-02-18 20:56] LABS: RBC Urine None Seen (0-5/HPF)
[2019-02-18 20:58] LABS: Appearance Urine UA CLEAR; Bilirubin Urine UA NEGATIVE (NEGATIVE); Color Urine UA YELLOW; Glucose Urine UA 2+ g/dL (Negative); Ketones Urine UA 1+ (NEGATIVE); Leukocyte Esterase Urine UA NEGATIVE (NEGATIVE); Nitrite Urine UA NEGATIVE (Negative); Occult Blood Urine UA NEGATIVE (Negative); Protein Urine UA NEGATIVE (Negative); Urobilinogen Urine UA 0.2 E.U./dL (0.2)
[2019-02-18 21:10] LABS: Bacteria Urine Many (>30); WBC Urine 1-5/HPF (0-5/HPF)
[2019-02-18 21:32] LABS: Add Manual Diff / Slide Review NO; Basophils Absolute Auto 0 /uL (0-100); Basophils Percent Auto 0.8 % (0-2); Eosinophils Absolute Auto 0 /uL (0-450); Eosinophils Percent Auto 0.2 % (2-4); Hematocrit 38.8 % (36-46); Hemoglobin 12.8 g/dL (12.0-16.0); Lymphocytes Absolute Auto 1100 /uL (1100-4500); Lymphocytes Percent Auto 21.8 % (25-40); Mean Corpuscular Hemoglobin 27.4 PG (26-34); Mean Corpuscular Volume 83.2 fL (80-100); Monocytes Absolute Auto 600 /uL (0-900); Monocytes Percent Auto 11.4 % (3-14); Neutrophils Absolute Auto 3500 /uL (1500-7000); Neutrophils Percent Auto 65.8 % (50-75); Platelet Count 274 X10^3/uL (150-400); Red Blood Cell Count 4.66 X10^6/uL (4.0-5.2); Red Cell Distribution Width 16.5 % (11.6-14.8); White Blood Cell Count 5.3 X10^3/uL (4.5-11.0)
[2019-02-18 21:39] LABS: INR 1.1 (0.9-1.3); Prothrombin Time 12.4 SECONDS (10.1-12.7)
[2019-02-18 21:42] LABS: PTT Partial Thromboplastin Tim 32 SECONDS (26.4-36.2)
[2019-02-18 21:44] LABS: Alanine Aminotransferase 33 IU/L (9-52); Albumin 4.3 g/dL (3.5-5.0); Alkaline Phosphatase 109 U/L (38-126); Aspartate Aminotransferase 48 IU/L (14-36); BUN Creatinine Ratio 53.3 (6-22); Bilirubin Total 1.5 mg/dL (0.2-1.3); Blood Urea Nitrogen 32 mg/dL (7-17); Carbon Dioxide 26 mmol/L (22-32); Chloride 104 mmol/L (98-107); Estimated Glomerular Filt Rate > 60.0 mL/min (>60); Globulin 4.1 g/dL (1.7-4.1); Glucose 298 mg/dL (80-110); HEMOLYSIS < 15 (0-50); Lactate (Lactic Acid) 1.2 mmol/L (0.7-2.1); Sodium 141 mmol/L (137-145); Total Protein 8.4 g/dL (6.3-8.2)
[2019-02-18 21:46] LABS: Ketones (Beta-Hydroxybutyrate) 1.06 mmol/L (<0.27)
[2019-02-18 21:57] LABS: Troponin I < 0.012 ng/mL (0.01-0.034)
[2019-02-18 21:58] VITALS: BP 155/91; PULSE 77; RESP 16; O2SAT 100
[2019-02-18] MEDS: SODIUM CHLORIDE 0.9% 1,000 ML 1000 ML IV (22:00)
[2019-02-18 22:30] VITALS: BP 168/70; PULSE 73; RESP 22; O2SAT 100
[2019-02-18 23:09] LABS: Creatine Kinase 261 U/L (30-135)
[2019-02-18 23:30] VITALS: BP 166/72; PULSE 83; RESP 19; O2SAT 99
[2019-02-18] MEDS: CEFTRIAXONE 2 GM/50 ML FROZ.PIGGY IV (23:52)
[2019-02-19] VITALS (17 sets, daily range): BP systolic 119–172; BP diastolic 57–97; PULSE 71–98; RESP 16–20; TEMP 36.3–37.6; O2SAT 90–100; BMI 30.2
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
--- NOTE | 2019-02-19 02:18 | P.HP_ITS ---
History of Present Illness History of Present Illness Date Patient Seen: 02/19/19 Time Patient Seen: 01:30 Chief complaint: increased confusion and hyperglycemia Narrative: Ms. Yasmine Manzano is an 83-year-old female patient with a history significant for diabetes, hypertension hypothyroidism and glaucoma presents to the ER after being found down on the floor at her home. The patient was visited by family today and found down on floor with more confusion than typical. The patient is unable to provide any meaningful history providing inappropriate or nonsensical responses to questions. When asked if she knew where she was she has said ?[employer] She is also manifesting visual hallucinations seeing bugs crawling on her sheets or other are none. Per report in the ER she was talking to individuals not present about crocked bracelet. The patient is unable to participate in a review of systems. Upon arrival in the ER the patient is afebrile with temperature 98.0?, hypertensive at 181/60, heart rate of 77, respirations 16 saturating 100% on room air. While in the ER the patient underwent head CT which found no intracranial pathology but notes moderate cerebral volume loss as well as moderate to severe chronic white matter small-vessel changes. Chest x-rays obtained which finds no acute pulmonary processes. Lab work reveals a white count of 5.3, hemoglobin of 12.8 in hematocrit of 38.8 and platelets of 274. Electrolytes are within normal limits however has a BUN of 32 and creatinine of 0.6. BUN creatinine ratio is 53.3. She is hyperglycemic with a blood sugar of 298. Lactic acid is 1.2 troponin is less than 0.012. Coags are normal. Her total CK is 261. Patient is admitted to the hospital for acute altered mental status of unknown etiology and inability to return to her former independent living setting. Patient History Medical History Acute alteration in mental status (Inactive) Bacteriuria (Inactive) Closed fracture of right distal fibula (Inactive) Diverticulitis (Inactive) Hyperglycemia (Inactive) Rhabdomyolysis (Inactive) Social History household members: spouse Smoking Status: Smoker, status unknown Family & Social History Social History: household members spouse Tobacco & Substance use: Smoking Status Smoker, status unknown Substance Use Type unknown Comment: The patient is incapable of caring on a meaningful conversation, her statements and response to questions are nonsensical. She is unable to provide social or family history. Advanced directives: The patient will be made FULL CODE due to the patient's inability to make medical judgment and lacking any other form of documentation to the contrary. Until further clarification the patient's daughter Afia Manzano will be the patient's salesperson hosiery and decision maker. Meds Home Medications and Allergies Home Medications Medication Instructions Recorded Confirmed Type alprazolam [Xanax] 0 mg PO PRN #0 12/18/12 02/08/18 History metformin [Glucophage XR] 500 mg PO QID #0 12/18/12 02/08/18 History glipizide [Glucotrol XL] 5 mg PO TID 02/08/18 02/08/18 History metoprolol tartrate 50 mg PO BID 02/08/18 02/08/18 History omeprazole 20 mg PO DAILY 02/08/18 02/08/18 History thyroid (pork) [[place] Thyroid] 90 mg PO BID 02/08/18 02/08/18 History Allergies Allergy/AdvReac Type Severity Reaction Status Date / Time ciprofloxacin [From CIPRO] Allergy Intermediate Verified 02/19/19 00:25 codeine [CODEINE] Allergy Intermediate Verified 02/19/19 00:25 Sulfa (Sulfonamide Allergy Mild Verified 02/19/19 00:25 Antibiotics) [SULFA (SULFONAMIDE ANTIBIOTICS)] Review of Systems Review of Systems ROS Unobtainable: unobtainable due to mental status Exam Vital Signs (past 8 hours): - 02/18/19 20:33 02/18/19 21:58 02/18/19 22:30 Temperature 98.0 F Pulse Rate 67 77 73 Respiratory Rate 18 16 22 Blood Pressure 181/68 H Blood Pressure [Right Arm] 155/91 H 168/70 H Pulse Oximetry 98 100 100 02/18/19 23:30 02/19/19 00:07 02/19/19 00:59 Temperature Pulse Rate 83 86 88 Respiratory Rate 19 17 18 Blood Pressure 161/89 H Blood Pressure [Right Arm] 166/72 H 172/89 H Pulse Oximetry 99 96 98 02/19/19 01:47 02/19/19 02:32 Temperature 98.3 F Pulse Rate 78 Respiratory Rate 20 Blood Pressure 126/85 Blood Pressure [Right Arm] Pulse Oximetry 98 90 L Oxygen Delivery Method Room Air Oxygen Flow Rate 0 Narrative Exam Narrative: GENERAL APPEARANCE: well developed, adequately nourished, in no acute physical distress with hallucinations. HEENT: Normocephalic, PERRLA, conjunctiva clear, EOMs intact without nystagmus, no rhinorrhea or epistaxis,, mucous membranes are dry and pink. NECK/THYROID: neck supple, no JVD, no carotid bruit, no thyromegaly, trachea midline. LYMPH NODES: no cervical or supraclavicular lymphadenopathy. SKIN: [place] warm and dry, no skin tenting. HEART: regular rate and rhythm, S1-S2, 1/6 systolic murmur, no rubs or gallops, brisk capillary refill, trace edema LUNGS: clear to auscultation bilaterally, no coarseness crackles or wheezing, dry nonproductive cough CHEST: Symmetrical movement, no accessory muscle use, winces with AP and lateral compression. ABDOMEN: Soft, no distention, no epigastric or abdominal tenderness on palpation, no guarding or peritoneal signs, no organomegaly, left flank pain on palpation, no suprapubic tenderness, active bowel tones. EXTREMITIES: moves all extremities, bruise to posterior right shoulder, left [place] and right knee in healing stage, no deformities or joint effusions. NEUROLOGIC: Patient is alert but unable to assess orientation due to lack of capacity, cranial nerves II-XII grossly intact , motor strength normal upper and lower extremities, sensory exam intact to light touch. PSYCH: alert, impaired cognition, word salad, visual and audible hallucinations. Objective Labs Result Diagrams: 02/18/19 21:24 02/18/19 21:24 Labs: Laboratory Results - last 24 hr 02/18/19 02/18/19 02/18/19 20:47 21:24 21:24 WBC 5.3 RBC 4.66 Hgb 12.8 Hct 38.8 MCV 83.2 MCH 27.4 MCHC 33.0 RDW 16.5 H Plt Count 274 Neut % (Auto) 65.8 Lymph % (Auto) 21.8 L [place] % (Auto) 11.4 Eos % (Auto) 0.2 L Baso % (Auto) 0.8 Neut # (Auto) 3500 Lymph # (Auto) 1100 [place] # (Auto) 600 Eos # (Auto) 0 Baso # (Auto) 0 PT 12.4 INR 1.1 APTT 32 D Sodium Potassium Chloride Carbon Dioxide BUN Creatinine Estimated GFR BUN/Creatinine Ratio Glucose Lactate Calcium Total Bilirubin AST ALT Alkaline Phosphatase Total Creatine Kinase Troponin I Total Protein Albumin Globulin Albumin/Globulin Ratio TSH Urine Color Yellow Urine Appearance Clear Urine pH 5.0 Ur Specific [place] 1.020 Urine Protein Negative Urine Glucose (UA) 2+ H Urine Ketones 1+ H Urine Occult Blood Negative Urine Nitrate Negative Urine Bilirubin Negative Urine Urobilinogen 0.2 Ur Leukocyte Esterase Negative Urine RBC None seen Urine WBC 1-5/hpf Urine Bacteria Many (>30) H Ur Culture Indicated? Culture not indicate Ketones 02/18/19 02/18/19 02/18/19 21:24 21:24 21:24 WBC RBC Hgb Hct MCV MCH MCHC RDW Plt Count Neut % (Auto) Lymph % (Auto) [place] % (Auto) Eos % (Auto) Baso % (Auto) Neut # (Auto) Lymph # (Auto) [place] # (Auto) Eos # (Auto) Baso # (Auto) PT INR APTT Sodium 141 Potassium 4.0 Chloride 104 Carbon Dioxide 26 BUN 32 H Creatinine 0.60 Estimated GFR > 60.0 BUN/Creatinine Ratio 53.3 H Glucose 298 H Lactate 1.2 Calcium 10.0 Total Bilirubin 1.5 H AST 48 H ALT 33 Alkaline Phosphatase 109 Total Creatine Kinase Troponin I < 0.012 Total Protein 8.4 H Albumin 4.3 Globulin 4.1 Albumin/Globulin Ratio 1.0 TSH Urine Color Urine Appearance Urine pH Ur Specific [place] Urine Protein Urine Glucose (UA) Urine Ketones Urine Occult Blood Urine Nitrate Urine Bilirubin Urine Urobilinogen Ur Leukocyte Esterase Urine RBC Urine WBC Urine Bacteria Ur Culture Indicated? Ketones 1.06 H 02/18/19 02/18/19 21:24 21:24 WBC RBC Hgb Hct MCV MCH MCHC RDW Plt Count Neut % (Auto) Lymph % (Auto) [place] % (Auto) Eos % (Auto) Baso % (Auto) Neut # (Auto) Lymph # (Auto) [place] # (Auto) Eos # (Auto) Baso # (Auto) PT INR APTT Sodium Potassium Chloride Carbon Dioxide BUN Creatinine Estimated GFR BUN/Creatinine Ratio Glucose Lactate Calcium Total Bilirubin AST ALT Alkaline Phosphatase Total Creatine Kinase 261 H Troponin I Total Protein Albumin Globulin Albumin/Globulin Ratio TSH 1.68 Urine Color Urine Appearance Urine pH Ur Specific [place] Urine Protein Urine Glucose (UA) Urine Ketones Urine Occult Blood Urine Nitrate Urine Bilirubin Urine Urobilinogen Ur Leukocyte Esterase Urine RBC Urine WBC Urine Bacteria Ur Culture Indicated? Ketones Assessment & Plan Assessment & Plan narrative: This is an 83-year-old female patient who was found down in her home who is usually cared for by her who was also found down. The patient has healing contusions to the right shoulder, right lower leg and left knee but no other significant trauma or skin breakdown. The patient is severely incapacitated and unable to purchase dissipate in medical care. 1. Altered mental status, acute on chronic, present on admission, active. -patient is confused at baseline per family report as related by ER provider with markedly worsened confusion today. -patient unable to respond to questions with meaningful information or appropriate responses. Her verbalizations are word salad. -active visual and auditory hallucinations. -head CT is negative for intracranial pathology does no cerebral volume loss with chronic low white matter small-vessel changes consistent with dementia. -causative acute on chronic altered mental status includes: -dehydration with a BUN creatinine ratio of 53.3 to 1 -misuse of medications, conflicting information regarding patient being hypothyroid, [place] Thyroid is listed under medications but not on previous hospitalization. Patient also takes alprazolam, unknown compliance or usage. -infection, patient has bacteria in the urine with left flank pain concerning for possible pyelonephritis. -will seek to address underlying causes under rated below. 2. Acute dehydration, present on admission, active -patient has dry mucous membranes, ketones in the urine, BUN creatinine ratio of 53.3:1 -IV normal saline at 100 cc/hour -heart healthy/consistent carbohydrate diet. -will monitor chemistries 3. Urinary tract infection, acute, bacteria present on admission, active -urine with positive glucose, positive ketones, positive bacteria and negative leukocyte esterase or nitrates, patient with left flank pain. -urine will be cultured and urine tox screen obtained. -patient was started on Rocephin in the emergency department receiving 2 g IV, will continue 1 g Q 24 hours. 4. History of medication misuse -patient had previously been admitted for misuse of medications with metabolic encephalopathy related to use of alprazolam. The patient is admitted to the hospital due to acute on chronic altered mental status, inability for self-care and unable to return to her home setting. Patient is also admitted for rehydration and IV antibiotics for urinary tract infection. Patient will be admitted as an inpatient with expected length of stay to be greater than 2 midnights. Quality VTE Deep Vein Thrombosis/Pulmonary Embolism Present on Admission: No
[2019-02-19] MEDS: SODIUM CHLORIDE 0.9% 1,000 ML 100 ML IV ×2 (03:10→14:14)
[2019-02-19 03:17] LABS: TSH w/ Reflex to FT4 1.68 uIU/mL (0.47-4.68)
[2019-02-19 05:57] LABS: Adenovirus Not Detected (Not Detect); Bordetella pertussis Not Detected (Not Detect); Chlamydophila pneumoniae Not Detected (Not Detect); Coronavirus 229E Not Detected (Not Detect); Coronavirus HKU1 Not Detected (Not Detect); Coronavirus NL 63 Not Detected (Not Detect); Coronavirus OC43 Not Detected (Not Detect); Human Metapneumovirus Not Detected (Not Detect); Human Rhinovirus/Enterovirus Not Detected (Not Detect); Influenza A Not Detected (Not Detect); Influenza B Not Detected (Not Detect); Mycoplasma pneumoniae Not Detected (Not Detect); Parainfluenza Virus 1 Not Detected (Not Detect); Parainfluenza Virus 2 Not Detected (Not Detect); Parainfluenza Virus 3 Not Detected (Not Detect); Parainfluenza Virus 4 Not Detected (Not Detect); Respiratory Syncytial Virus Not Detected (Not Detect)
[2019-02-19 06:12] LABS: Urine Amphetamines Negative (Negative); Urine Barbiturates Negative (Negative); Urine Benzodiazepines Negative (Negative); Urine Cocaine Negative (Negative); Urine MDMA Negative (Negative); Urine Methadone Negative (Negative); Urine Methamphetamines Negative (Negative); Urine Morphine/Opi cutoff 2000 Negative (Negative); Urine Oxycodone Negative (Negative); Urine Phencyclidine Negative (Negative); Urine Tetrahydrocannabinol Negative (Negative); Urine Tricyclic Antidepressant Negative (Negative)
[2019-02-19 06:12] LABS: Add Manual Diff / Slide Review NO; Basophils Absolute Auto 0 /uL (0-100); Basophils Percent Auto 0.5 % (0-2); Eosinophils Absolute Auto 0 /uL (0-450); Eosinophils Percent Auto 0.2 % (2-4); Hematocrit 36.8 % (36-46); Hemoglobin 12.1 g/dL (12.0-16.0); Lymphocytes Absolute Auto 600 /uL (1100-4500); Lymphocytes Percent Auto 12.6 % (25-40); Mean Corpuscular HGB Conc 32.9 % (30-36); Mean Corpuscular Hemoglobin 27.3 PG (26-34); Monocytes Absolute Auto 400 /uL (0-900); Monocytes Percent Auto 7.7 % (3-14); Neutrophils Absolute Auto 4000 /uL (1500-7000); Platelet Count 229 X10^3/uL (150-400); Red Blood Cell Count 4.43 X10^6/uL (4.0-5.2); Red Cell Distribution Width 16.6 % (11.6-14.8)
[2019-02-19 06:25] LABS: Blood Urea Nitrogen 25 mg/dL (7-17); Calcium 9.2 mg/dL (8.4-10.2); Carbon Dioxide 23 mmol/L (22-32); Chloride 107 mmol/L (98-107); Estimated Glomerular Filt Rate > 60.0 mL/min (>60); Glucose 247 mg/dL (80-110); HEMOLYSIS < 15 (0-50); Magnesium 1.7 mg/dL (1.6-2.3); Sodium 142 mmol/L (137-145)
--- NOTE | 2019-02-19 07:44 | PC.NURSE ---
Addendum entered by Isela Chavez R.N. 02/19/19 11:45: NEURO/MS - phys therapy in and mobilized pt up to chair, speech is clearer and is oriented to hospital, able to answer questions from Dr. Mercedes, does trail off at times and is distracted, called 's office and rec'd fax of her medications, current cbg is 318 and informed and states will add basal to the SS. Addendum entered by Isela Chavez R.N. 02/19/19 10:31: RESP - while awake, 02 sat 98% 2l, removed and maintained 92-93% until asleep, then decr to mid 80's, replaced at 1l to maintain greater 92%. Original Note: AM NOTE - pt awakened and throwing off blankets, 'I need to pee, when asked if she knew where she was, [facility], speech is clear initially but as her sentences become longer her words become garbled and unrelated to conversation, hr reg, 2l 98%, martin w/clear yellow urine, assisted with repositioning for comfort, warm blanket, bed alarm set.
[2019-02-19] MEDS: INSULIN ASPART 100 UNIT/ML INSULN PEN SUBCUT ×2 (08:46→12:14)
[2019-02-19] MEDS: ENOXAPARIN 40 MG/0.4 ML SYRINGE SUBCUT (08:53)
[2019-02-19] MEDS: ACETAMINOPHEN 325 MG TABLET 650 MG PO ×2 (08:54→23:29)
--- NOTE | 2019-02-19 11:15 | PT.IIE ---
Medical History (Last Reviewed 02/19/19 @ 03:27 by XIMENA Dewey) Acute alteration in mental status (Inactive) Bacteriuria (Inactive) Closed fracture of right distal fibula (Inactive) Diverticulitis (Inactive) Hyperglycemia (Inactive) Rhabdomyolysis (Inactive) Physical Therapy Inpatient Evaluation/Re-Eval M1 PT/OT-IP Prior Functional Status Start: 02/19/19 13:16 Freq: NEEDED Status: Active Protocol: Document 02/19/19 11:15 AB (Rec: 02/19/19 13:37 [id number]) Medical Review Prior Functional Status Medical History Reviewed Yes Communication able to make needs known Mobility and Gait pt is not able to give accurate information of PLOF spouse stated that pt is modified independent with mobilities and uses a FWW for ambulation Social History Household Members spouse Number of Floors (Floors) Two Floors Number of Stairs To Enter/Railing? spouse provided info regarding home setup and PLOF lives in a 2 level house but stays on main level of the house has 1 step to get into the house Home Environment Standard Height Toilet,Tub/ Shower Home Equipment Front Wheel Walker,Grab Bars Near Toilet Employment Status Retired Additional Social History Comment take sponge baths M2 PT-IP Current Condition Start: 02/19/19 13:16 Freq: NEEDED Status: Active Protocol: Document 02/19/19 11:15 AB (Rec: 02/19/19 13:37 [id number]) Physical Therapy Current Condition Current Condition Evaluation Date 02/19/19 Treatment Diagnosis altered mental status; bacteriuria; difficulty in walking Onset Date 02/19/19 Precautions Other Precautions falls M3 PT-IP Subjective Start: 02/19/19 13:16 Freq: NEEDED Status: Active Protocol: Document 02/19/19 11:15 AB (Rec: 02/19/19 13:37 [id number]) Subjective Physical Therapy Visit Type Type Initial Evaluation Visit Start Time 11:15 Visit Stop Time 11:41 Total Visit Minutes 26 Number of ATMOSPHERIC PHYSICS PROFESSOR Visits 0 Physical Therapy Visit Comments Patient Comments pt is with confusion; able to answer simple questions inconsistently as pt also provided unrelated answers M4 PT-IP Mobility and Gait Start: 02/19/19 13:16 Freq: NEEDED Status: Active Protocol: Document 02/19/19 11:15 AB (Rec: 02/19/19 13:37 [id number]) PT-Bed Mobility Assessment Supine to Sit Supine to Sit Moderate Assistance,Bedrails PT-Transfer Assessment Sit to and From Stand Sit to and from Stand Minimal Assistance,1 Person Assistance,Use of Upper Extremities Equipment Transfer Assistive Device Gait Belt,Front Wheeled Walker Orthotic/Prosthetic Devices or Brace: No Transfers Transfer Destination Chair Transfer Technique pt ambulated using FWW Transfer Ability Level of Assist Minimal Assistance,Moderate Assistance,1 Person Assistance ,Use of Upper Extremities Comments Mobility Comments pt completed supinet o sit mod A and cues. able to sit on EOB CGA and completed sit to stand min A and cues. Gait Assessment Gait Gait Assistance Required: Minimum Assistance,Moderate Assistance,1 Person Assist Distance (Feet) 20 Able to Maintain Weight Bearing Status Yes During Gait Assistive Devices Assistive Device Gait Belt,Front Wheeled Walker Orthotic/Prosthetic Devices or Brace: No Gait Deviations General Gait Pattern Antalgic,Ataxic,Decreased Feet Clearance Factors Limiting Gait Function Factors Limiting Gait Function Decreased Activity Tolerance, Decreased Strength,Difficulty Following Directions,Poor Balance,Poor Safety Awareness Comments Gait Comments pt presents with unsteady gait and requires cues for safety. PT-Balance Assessment Sitting Balance and Reactions Static Sitting Balance Ability Good Dynamic Sitting Balance Ability Good Standing Balance and Reactions Static Standing Balance Ability Fair Dynamic Standing Balance Ability Poor Device Used FWW M5 PT-IP Objective Assessments Start: 02/19/19 13:16 Freq: NEEDED Status: Active Protocol: Document 02/19/19 11:15 AB (Rec: 02/19/19 13:37 [id number]) Orientation Orientation/Cognition Level of Alertness Confusional State Orientation Name,Birthday Safety Awareness Decreased Safety Awareness Memory Description Short Term Impaired,Care Home Impaired Comments pt does not know where she is at, does not know the date and why she is in the hospital. Gross Range of Motion Lower Extremity ROM Assessment Within Functional Limits Strength Lower Extremity Strength Assessment Bilaterally Impaired Comments Strength Comments BLE 3+/5 Sensation Assessment Sensation Gross Sensation WNL Muscle Tone Muscle Tone WNL Yes M6 PT-IP Treatment Start: 02/19/19 13:16 Freq: NEEDED Status: Active Protocol: Document 02/19/19 11:15 AB (Rec: 02/19/19 13:37 [id number]) Physical Therapy Treatment Education Education Provided Safety M7 PT-IP Assessment and Plan Start: 02/19/19 13:16 Freq: NEEDED Status: Active Protocol: Document 02/19/19 11:15 AB (Rec: 02/19/19 13:37 AB [id number]) PT Summary Assessment and Plan Potential Rehabilitation Potential Fair Status of Condition at Evaluation Evolving Summary Impairments ROM,Strength,Balance, Coordination,Cognition,Bed Mobility,Transfers,Gait, Activity Tolerance Assessment Summary pt requiring min to mod A with mobility. pt with decrease cognitive level affecting function and independence. requires cues and redirection with all tasks. pt will benefit from SNF rehab to improve strength and mobility. pt requires 24/ supervision /assist not only due to functional assistance but aslo safety issues due to decrease safety awareness. pt will eventually require LTC/memory care. Goals Bed Mobility Goal Independent Transfer Goal Standby Assistance,Front Wheeled Walker Gait Goal Standby Assistance,Front Wheel Walker Gait Distance 150 Other Goals up/down 1 step using FWW SBA Days to Meet Goals 10 Frequency of Treatment Frequency Of Treatment Once a Day Treatment Plan Physical Therapy Treatment Plan Bed Mobility Training,Transfer Training,Gait Training, Therapeutic Exercise,Balance Retraining,Discharge Planning, Neuromuscular Re-ed, Coordination Retraining Recommendations To Nursing Amount of Assist Needed 1 Person Assist Discharge Recommendations PT Discharge Recommendations SNF Rehab
--- NOTE | 2019-02-19 13:34 | OT.IP.EVAL ---
Past Medical History (Last Reviewed 02/19/19 @ 03:27 by XIMENA Dewey) Acute alteration in mental status (Inactive) Bacteriuria (Inactive) Closed fracture of right distal fibula (Inactive) Diverticulitis (Inactive) Hyperglycemia (Inactive) Rhabdomyolysis (Inactive) Occupational Therapy Inpatient Evaluation/Re-Eval M1 PT/OT-IP Prior Functional Status Start: 02/19/19 13:16 Freq: NEEDED Status: Active Protocol: Document 02/19/19 15:34 PJM (Rec: 02/19/19 15:58 PJM [id number]) Medical Review Prior Functional Status Medical History Reviewed Yes Diet/Fluid Consistency Regular Communication able to make needs known Mobility and Gait Pt is not able to give accurate information of PLOF due to confusion. Spouse, who is also admitted to hospital, stated that pt is modified independent with mobilities and uses a FWW for ambulation, but spouse also confused and no family here to confirm. Activities of Daily Living and IADL's no family here to confirm home situation Social History Household Members spouse Living Arrangements House Number of Floors (Floors) Two Floors Number of Stairs To Enter/Railing? Spouse provided info regarding home setup and PLOF. They live in 2 level house but stay on main level. One step to enter. Home Environment Standard Height Toilet,Tub/ Shower Home Equipment Front Wheel Walker,Grab Bars Near Toilet Employment Status Retired Additional Social History Comment pt take sponge baths due to fear of falling in tub M2 OT-IP Current Condition Start: 02/19/19 14:37 Freq: Status: Active Protocol: Document 02/19/19 15:34 PJM (Rec: 02/19/19 15:58 PJM [id number]) Occupational Therapy Current Condition Current Condition Evaluation Date 02/19/19 Treatment Diagnosis altered mental status, decr'd self care, hallucinating, ? medication misuse Diagnosis Onset Date 02/19/10 Post Operative Precautions Other Precautions confusion, high fall risk, bed /chair alarm M3 OT- IP Subjective and Pain Start: 02/19/19 14:37 Freq: Status: Active Protocol: Document 02/19/19 15:34 PJM (Rec: 02/19/19 15:58 PJM [id number]) OT- Subjective Occupational Therapy Visit Type Type Initial Evaluation Visit Start Time 13:18 Visit Stop Time 13:34 Total Visit Minutes 16 Notes Limited evaluation due to pt confusion Occupational Therapy Visit Comments Patient Comments pt very verbal, speech garbled or word salad at times Patient/Caregiver Goals pt unable to verbalize goal due to confusion OT Pain Assessment Pain When Pain Assessed At Rest Pain Present Pain Present Pain Reported FLACC Pain Scale Face No particular expression Legs Normal position; relaxed Activity Quiet, moves easily Cry No cry (awake or asleep) Consolability Reassurable with touch FLACC Total 1 Location Right Leg Scale Used pt unable to rate due to confusion M4 OT- IP ADL's Start: 02/19/19 14:37 Freq: Status: Active Protocol: Document 02/19/19 15:34 PJM (Rec: 02/19/19 15:58 PJ [id number]) OT TOL-Vutl-[id number] Comments OT Self-Feeding Comments to be assessed OT ADL-Grooming General Evaluation Grooming Ability Standby Assistance Areas Needing Assistance Face Washing Comments OT Grooming Comments washes face briefly after set up OT ADL-Oral Care Comments Oral Care Comments to be assessed OT ADL-Dressing General Eval Upper Body Dressing Ability Maximum Assistance Lower Body Dressing Ability Total Assistance Comments OT Dressing Comments max assist with gown management due to confusion OT ADL-Toileting General Evaluation Toileting Ability Total Assistance Areas Needing Assistance Empty Catheter or Colostomy OT ADL-Bathing Bathing Type Bathing Type Bed Bath General Evaluation Bathing Ability Total Assistance M5 OT- IP IADL's Start: 02/19/19 14:37 Freq: Status: Active Protocol: Document 02/19/19 15:34 PJM (Rec: 02/19/19 15:58 PJ [id number]) OT-Instrumental Activities of Daily Living Deficits IADL Deficits Identified Deficits Home Safety Awareness Awareness of Need for Assistance at Home Decreased Awareness Ability to Problem Solve Emergency Unable to Problem Solve Situations Medication Management Medication Management Comments per chart notes, suspect pt has been misusing alprazolone, memory deficits interfere with safe medication management Money Management Money Management Caregiver Provides Assistance Money Management Comments pays bills on auto pay Meal Preparation Meal Preparation Caregiver Provides Assist Meal Preparation Comments assists , but he is unable to initiate or complete appropriate meal preparation, spoiled food found in home 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 Comments house in disarray per chart notes with dirty clothes and spoiled food throughout, daughter in law assists with grocery shopping Driving Driving Comments pt and do not drive M6 OT- IP Functional Cognition Start: 02/19/19 14:37 Freq: Status: Active Protocol: Document 02/19/19 15:34 PJM (Rec: 02/19/19 15:58 PJM [id number]) Cognitive Factors Limiting Selfcare Function Cognitive Ability Level of Alertness Confusional State Patient Orientation Name,Birthday Attention Span Ability Unable to Focus,Unable to Sustain Attention Ability to Follow Commands Able to Follow One Step Commands with Increased Time, Able to Follow One Step Commands with Repetition Memory Description Immediate Impaired,Short Term Impaired Safety Awareness Decreased Recall of Precautions,Decreased Ability to Apply Precautions, Underestimates Need for Assistance Problem Solving Ability Unable to Identify Errors, Needs Assist to Identify Solutions Executive Function Ability Unable to Hold Focus,Unable to Filter Distractions,Unable to Make Plans,Unable to Organize Plans,Unable to Remember Details,Unable to Integrate Past Experience With Present Action Cognitive Comments Cognitive Assessment Comments Pt alerts to voice and follows on step commands with increased time, but very internally/externally distractible. Some appropriate responses to conversation, but also demonstrates garbled speech and word salad at times . Pt does not appear to be hallucinating at present. OT- Vision and Hearing OT- Hearing Assessment OT- Hearing Assessment WFL OT- Vision Assessment Visual Acuity WFL,Glasses For Reading Vision Assessment Comments Protuberant eyes noted. Pt can read wall clock accurately without glasses. M7 OT- IP Mobility and Balance Start: 02/19/19 14:37 Freq: Status: Active Protocol: Document 02/19/19 15:34 PJM (Rec: 02/19/19 15:58 [facility] [id number]) OT-Transfer Assessment Comments Mobility Comments see P.T. notes; pt adamantly declined OOB this session OT- Gait Assessment Comments Gait Ability Comments see P.T. notes OT- Balance Assessment Comments Other Balance Tests/Deviations/Treatment see P.T. 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 Strength Hand Dominance Right Comments Strength Comments no focal weakness noted OT- Coordination Assessment Comments Coordination Comments further assessment to follow OT-Muscle Tone Assessment Muscle Tone WNL Yes OT Sensation Assessment Comments Summary Comments appears WFL by observation M9 OT- IP Assessment and Plan Start: 02/19/19 14:37 Freq: Status: Active Protocol: Document 02/19/19 15:34 [id number] (Rec: 02/19/19 15:58 PJM [id number]) OT Summary Assessment and Plan Potential Rehabilitation Potential Fair Analytic Complexity at Evaluation Low Summary OT Impairments Pain,Strength,Balance, Functional Cognition, Functional Mobility,Grooming, Dressing,Toileting,Bathing, Toilet Transfers,Shower Transfers Assessment Summary Low complexity OT assessment completed as limited by confusion this session. Pt is an 83 yr old woman found down at home with also found down. Pt actively hallucinating and misuse of alprazolom suspected with hx of dementia. Pt alerts to voice and follows one step commands with increased time but is highly distractible and tangential with poor attention/concentration. Pt currently has significant performance deficits in cognition, all functional mobility per P.T. notes, as well as dressing, bathing and toileting. Pt not safe to return home with who is also confused. House in disarray per chart notes. Recommend SNF at d/c with likely need for senior living memory care unit. Will provide OT services here to address the goals below. Goals Self-Feeding Goal Standby Assistance Grooming Goal Standby Assistance Dressing Goal Minimal Assistance Toileting Goal Moderate Assistance Bathing Goal Minimal Assistance Toilet Transfer Goal Minimal Assistance,Raised Toilet Seat,Grab Bars OT-Other Goals Bathing goal is for upper body sponge bath in chair Days to Meet Goals 7 Frequency of Treatment Frequency Of Treatment Once a Day Treatment Plan OT Treatment Plan ADL Training,Functional Mobility,Patient/Family Education,Discharge Planning Discharge Recommendations OT Discharge Recommendations SNF Rehab
--- NOTE | 2019-02-19 14:03 | PM.PN.1 ---
Subjective Subjective Date Patient Seen: 02/19/19 Time Patient Seen: 09:50 Interval history: Patient was seen and evaluated this morning. Her is also admitted to the hospital at the same time. I spoke with patient's son today who reports similar episodes in the past both patients were found down. They showed me pictures of the home which had rotten food near the bedside and in the hallways, the Bed was soaked in urine and dirty clothes were scattered throughout the house. The son reports that her mom is still confused from baseline, and admits that the possibility that she is abusing the alprazolam. Laboratory evaluation was unrevealing except for elevated glucose and mildly elevated CK. They report worsening cognition over the past 7 to 8 years, and they would like to see parents in a safer situation, but have been previously unable to convince them to go. Exam Vital Signs (past 8 hours): - 02/19/19 07:40 02/19/19 08:00 02/19/19 08:29 Temperature 98.8 F Pulse Rate 83 98 H Respiratory Rate 20 Blood Pressure 152/78 H Pulse Oximetry 98 97 95 02/19/19 11:00 02/19/19 12:00 Temperature 98.7 F Pulse Rate 80 Respiratory Rate 20 Blood Pressure 149/68 H Pulse Oximetry 93 95 Oxygen Delivery Method Room Air Oxygen Flow Rate 2 Narrative Exam Narrative: GENERAL APPEARANCE: Disheveled, chronically ill appearing. SKIN: Inspection of the skin reveals no rashes, ulcerations or petechiae. HEENT: The sclerae were anicteric and conjunctivae were pink and moist. Extraocular movements were intact and pupils were equal, round with normal accommodation. External inspection of the ears and nose showed no scars, lesions, or masses. Lips, teeth, and gums showed normal mucosa. The oral mucosa was dry. NECK: Supple and symmetric. There was no thyroid enlargement, and no tenderness, or masses were felt. CHEST: Normal AP diameter and normal contour without any kyphoscoliosis. LUNGS: Auscultation of the lungs revealed no wheezes, rhonchi, or rales. CARDIOVASCULAR: There was a regular rate and rhythm without any murmurs, gallops, rubs. Peripheral pulses were 2+ and symmetric. ABDOMEN: Soft and nontender with normal bowel sounds. No ascites was noted. MUSCULOSKELETAL: There was no tenderness or effusions noted. Muscle strength and tone were normal. EXTREMITIES: No cyanosis, clubbing or edema. NEUROLOGIC: Alert and oriented x 2. Normal affect. Gait was normal. Strength is +5/5 in the Upper Extremities and Lower Extremities Bilaterally. Sensation to touch was normal. Objective Labs Result Diagrams: 02/19/19 05:55 02/19/19 05:55 Labs: Laboratory Results - last 24 hr 02/18/19 02/18/19 02/18/19 20:47 20:47 21:24 WBC 5.3 RBC 4.66 Hgb 12.8 Hct 38.8 MCV 83.2 MCH 27.4 MCHC 33.0 RDW 16.5 H Plt Count 274 Neut % (Auto) 65.8 Lymph % (Auto) 21.8 L [place] % (Auto) 11.4 Eos % (Auto) 0.2 L Baso % (Auto) 0.8 Neut # (Auto) 3500 Lymph # (Auto) 1100 [place] # (Auto) 600 Eos # (Auto) 0 Baso # (Auto) 0 PT INR APTT Sodium Potassium Chloride Carbon Dioxide BUN Creatinine Estimated GFR BUN/Creatinine Ratio Glucose Lactate Calcium Magnesium Total Bilirubin AST ALT Alkaline Phosphatase Total Creatine Kinase Troponin I Total Protein Albumin Globulin Albumin/Globulin Ratio TSH Urine Color Yellow Urine Appearance Clear Urine pH 5.0 Ur Specific [place] 1.020 Urine Protein Negative Urine Glucose (UA) 2+ H Urine Ketones 1+ H Urine Occult Blood Negative Urine Nitrate Negative Urine Bilirubin Negative Urine Urobilinogen 0.2 Ur Leukocyte Esterase Negative Urine RBC None seen Urine WBC 1-5/hpf Urine Bacteria Many (>30) H Ur Culture Indicated? Culture not indicate Urine Opiates Screen Negative Ur Oxycodone Screen Negative Urine Methadone Screen Negative Ur Barbiturates Screen Negative U Tricyclic Antidepress Negative Ur Phencyclidine Scrn Negative Ur Amphetamines Screen Negative U Methamphetamines Scrn Negative Ur MDMA Scrn (Ecstasy) Negative U Benzodiazepines Scrn Negative Urine Cocaine Screen Negative U Marijuana (THC) Screen Negative Ketones Chlamy pneumoniae PCR Adenovirus (PCR) B.parapertussis DNA PCR Coronavirus OC43 (PCR) Coronavirus HKU1 (PCR) Coronavirus 229E (PCR) Coronavirus NL63 (PCR) Human Metapneumovir PCR Influenza Type A (PCR) Influenza Type B (PCR) M. pneumoniae (PCR) Parainfluenza 1 (PCR) Parainfluenza 2 (PCR) Parainfluenza 3 (PCR) Parainfluenza 4 (PCR) RSV (PCR) Entero/Rhino (PCR) 02/18/19 02/18/19 02/18/19 21:24 21:24 21:24 WBC RBC Hgb Hct MCV MCH MCHC RDW Plt Count Neut % (Auto) Lymph % (Auto) [place] % (Auto) Eos % (Auto) Baso % (Auto) Neut # (Auto) Lymph # (Auto) [place] # (Auto) Eos # (Auto) Baso # (Auto) PT 12.4 INR 1.1 APTT 32 D Sodium 141 Potassium 4.0 Chloride 104 Carbon Dioxide 26 BUN 32 H Creatinine 0.60 Estimated GFR > 60.0 BUN/Creatinine Ratio 53.3 H Glucose 298 H Lactate 1.2 Calcium 10.0 Magnesium Total Bilirubin 1.5 H AST 48 H ALT 33 Alkaline Phosphatase 109 Total Creatine Kinase Troponin I < 0.012 Total Protein 8.4 H Albumin 4.3 Globulin 4.1 Albumin/Globulin Ratio 1.0 TSH Urine Color Urine Appearance Urine pH Ur Specific [place] Urine Protein Urine Glucose (UA) Urine Ketones Urine Occult Blood Urine Nitrate Urine Bilirubin Urine Urobilinogen Ur Leukocyte Esterase Urine RBC Urine WBC Urine Bacteria Ur Culture Indicated? Urine Opiates Screen Ur Oxycodone Screen Urine Methadone Screen Ur Barbiturates Screen U Tricyclic Antidepress Ur Phencyclidine Scrn Ur Amphetamines Screen U Methamphetamines Scrn Ur MDMA Scrn (Ecstasy) U Benzodiazepines Scrn Urine Cocaine Screen U Marijuana (THC) Screen Ketones Chlamy pneumoniae PCR Adenovirus (PCR) B.parapertussis DNA PCR Coronavirus OC43 (PCR) Coronavirus HKU1 (PCR) Coronavirus 229E (PCR) Coronavirus NL63 (PCR) Human Metapneumovir PCR Influenza Type A (PCR) Influenza Type B (PCR) M. pneumoniae (PCR) Parainfluenza 1 (PCR) Parainfluenza 2 (PCR) Parainfluenza 3 (PCR) Parainfluenza 4 (PCR) RSV (PCR) Entero/Rhino (PCR) 02/18/19 02/18/19 02/18/19 21:24 21:24 21:24 WBC RBC Hgb Hct MCV MCH MCHC RDW Plt Count Neut % (Auto) Lymph % (Auto) [place] % (Auto) Eos % (Auto) Baso % (Auto) Neut # (Auto) Lymph # (Auto) [place] # (Auto) Eos # (Auto) Baso # (Auto) PT INR APTT Sodium Potassium Chloride Carbon Dioxide BUN Creatinine Estimated GFR BUN/Creatinine Ratio Glucose Lactate Calcium Magnesium Total Bilirubin AST ALT Alkaline Phosphatase Total Creatine Kinase 261 H Troponin I Total Protein Albumin Globulin Albumin/Globulin Ratio TSH 1.68 Urine Color Urine Appearance Urine pH Ur Specific [place] Urine Protein Urine Glucose (UA) Urine Ketones Urine Occult Blood Urine Nitrate Urine Bilirubin Urine Urobilinogen Ur Leukocyte Esterase Urine RBC Urine WBC Urine Bacteria Ur Culture Indicated? Urine Opiates Screen Ur Oxycodone Screen Urine Methadone Screen Ur Barbiturates Screen U Tricyclic Antidepress Ur Phencyclidine Scrn Ur Amphetamines Screen U Methamphetamines Scrn Ur MDMA Scrn (Ecstasy) U Benzodiazepines Scrn Urine Cocaine Screen U Marijuana (THC) Screen Ketones 1.06 H Chlamy pneumoniae PCR Adenovirus (PCR) B.parapertussis DNA PCR Coronavirus OC43 (PCR) Coronavirus HKU1 (PCR) Coronavirus 229E (PCR) Coronavirus NL63 (PCR) Human Metapneumovir PCR Influenza Type A (PCR) Influenza Type B (PCR) M. pneumoniae (PCR) Parainfluenza 1 (PCR) Parainfluenza 2 (PCR) Parainfluenza 3 (PCR) Parainfluenza 4 (PCR) RSV (PCR) Entero/Rhino (PCR) 02/19/19 02/19/19 02/19/19 04:30 05:55 05:55 WBC 5.0 RBC 4.43 Hgb 12.1 Hct 36.8 MCV 83.0 MCH 27.3 MCHC 32.9 RDW 16.6 H Plt Count 229 Neut % (Auto) 79.0 H Lymph % (Auto) 12.6 L [place] % (Auto) 7.7 Eos % (Auto) 0.2 L Baso % (Auto) 0.5 Neut # (Auto) 4000 Lymph # (Auto) 600 L [place] # (Auto) 400 Eos # (Auto) 0 Baso # (Auto) 0 PT INR APTT Sodium 142 Potassium 4.0 Chloride 107 Carbon Dioxide 23 BUN 25 H Creatinine 0.50 L Estimated GFR > 60.0 BUN/Creatinine Ratio 50.0 H Glucose 247 H Lactate Calcium 9.2 Magnesium 1.7 Total Bilirubin AST ALT Alkaline Phosphatase Total Creatine Kinase Troponin I Total Protein Albumin Globulin Albumin/Globulin Ratio TSH Urine Color Urine Appearance Urine pH Ur Specific [place] Urine Protein Urine Glucose (UA) Urine Ketones Urine Occult Blood Urine Nitrate Urine Bilirubin Urine Urobilinogen Ur Leukocyte Esterase Urine RBC Urine WBC Urine Bacteria Ur Culture Indicated? Urine Opiates Screen Ur Oxycodone Screen Urine Methadone Screen Ur Barbiturates Screen U Tricyclic Antidepress Ur Phencyclidine Scrn Ur Amphetamines Screen U Methamphetamines Scrn Ur MDMA Scrn (Ecstasy) U Benzodiazepines Scrn Urine Cocaine Screen U Marijuana (THC) Screen Ketones Chlamy pneumoniae PCR Not detected Adenovirus (PCR) Not detected B.parapertussis DNA PCR Not detected Coronavirus OC43 (PCR) Not detected Coronavirus HKU1 (PCR) Not detected Coronavirus 229E (PCR) Not detected Coronavirus NL63 (PCR) Not detected Human Metapneumovir PCR Not detected Influenza Type A (PCR) Not detected Influenza Type B (PCR) Not detected M. pneumoniae (PCR) Not detected Parainfluenza 1 (PCR) Not detected Parainfluenza 2 (PCR) Not detected Parainfluenza 3 (PCR) Not detected Parainfluenza 4 (PCR) Not detected RSV (PCR) Not detected Entero/Rhino (PCR) Not detected Assessment & Plan Assessment & Plan narrative: I agree with the previously documented assessment and plan. The patient concurrently has a toxic metabolic encephalopathy with delirium likely secondary to alprazolam overuse. She is currently improving. We will hold this medication and monitor her mental status closely. Quality VTE Deep Vein Thrombosis/Pulmonary Embolism Present on Admission: No
[2019-02-19] MEDS: CEFTRIAXONE 1 GM/50 ML FROZ.PIGGY IV (21:34)
--- NOTE | 2019-02-19 23:32 | PC.NURSE ---
Evening note: Yasmine has mostly slept tonight, wakes easily to voice, at one point said yes I know where I am-I'm in the hospital. Disoriented to time, date, everything else. Allowed staff to take vitals and check blood sugar but when I went to ask her if she was hungry and give SS insulin, she pushed me away and said stop it! Turning on her side and going back to sleep. SUPERVISORY HISTORIAN woke her around 1900 and asked her if she wanted to eat dinner, she refused meal, falling back asleep. At 2099 she pushed me away again, refused me to give her Lantus, I explained new order from physician and asked her if she knew where she was, she said clearly the hospital. Fell back asleep. Daughter & son here to visit Yasmine, Yasmine woke when they were in room but daughter said she acted like she did not know who I was. Daughter said she would be back in the morning, hopeful that CM can help assist in this case, dtr saying they can't go back home--they just cant.
[2019-02-20] VITALS (9 sets, daily range): BP systolic 133–169; BP diastolic 42–89; PULSE 55–82; RESP 18–20; TEMP 36.1–36.7; O2SAT 92–99; BMI 30.2
[2019-02-20] MEDS: SODIUM CHLORIDE 0.9% 1,000 ML 100 ML IV (01:42)
[2019-02-20] MEDS: TIMOLOL 0.5% OPHTH 1 DROPS EYE-BOTH ×2 (02:54→22:16)
--- NOTE | 2019-02-20 03:42 | PC.NURSE ---
Addendum entered by Arely Sterling R.N. 02/20/19 04:28: BANK ADVISOR found pt after she had removed her own IV catheter and was playing with it. Took line away from patient and cleaned her up, restarted new IV line in same hand. IV site is positional and requires folded 2x2 to remain patent. Taped site down securely and covered with tube gauze to protect it from intentional and accidental removal. Pt tolerated IV start well. Original Note: Shift note: Received pt from evening shift. Pt is alert to self only, sometimes knows shes at the hospital but forgets and thinks shes at home as well. Pt's mental status is improved from last night in that her answers are more appropriate but she tends to focus on things and needs multiple episodes of education (ie her glasses that are not at the hospital but she keeps looking for them). Pt has not made any attempts to exit the bed tonight but does not use call light appropriately and is unaware when she pushes the call light for help. Pt is on RA, VSS, IV infusing to left hand with no issues. Pt requested her eye drops for her glaucoma, prescription was not verified on dayshift, ZOOLOGY TEACHER made aware and ordered drops with a single drop to both eyes which was started tonight. Pt remains a high fall risk d/t falls, mentation, and weakness, bed alarm is not functioning so a chair alarm is attached to pt and functional, pt is in a view room for her safety.
[2019-02-20] MEDS: ENOXAPARIN 40 MG/0.4 ML SYRINGE SUBCUT (08:05)
[2019-02-20] MEDS: INSULIN ASPART 100 UNIT/ML INSULN PEN SUBCUT ×3 (08:05→22:15)
--- NOTE | 2019-02-20 09:20 | OT.IP.TRT ---
Occupational Therapy Treatment Note M2 OT-IP Current Condition Start: 02/19/19 14:37 Freq: Status: Active Protocol: Document 02/19/19 15:34 PJM (Rec: 02/19/19 15:58 PJM [id number]) Occupational Therapy Current Condition Current Condition Evaluation Date 02/19/19 Treatment Diagnosis altered mental status, decr'd self care, hallucinating, ? medication misuse Diagnosis Onset Date 02/19/10 Post Operative Precautions Other Precautions confusion, high fall risk, bed /chair alarm M3 OT- IP Subjective and Pain Start: 02/19/19 14:37 Freq: Status: Active Protocol: Document 02/20/19 09:20 PJM (Rec: 02/20/19 10:35 PJM [id number]) OT- Subjective Occupational Therapy Visit Type Type Treatment Note Visit Start Time 08:55 Visit Stop Time 09:20 Total Visit Minutes 25 Occupational Therapy Visit Comments Patient Comments Where's Giuliano? have you seen Giuliano? Can you help me find my wallet? Patient/Caregiver Goals pt unable to verbalize meaningful goal due to decreased cognition OT Pain Assessment Pain When Pain Assessed After Treatment Pain Present Pain Present Denied Pain M4 OT- IP ADL's Start: 02/19/19 14:37 Freq: Status: Active Protocol: Document 02/20/19 09:20 PJM (Rec: 02/20/19 10:35 PJ [id number]) OT ADL-Grooming General Evaluation Grooming Ability Standby Assistance Areas Needing Assistance Retrieving/Set-up of Grooming Items,Combing/Brushing Hair, Face Washing Comments OT Grooming Comments Pt needs mod verbal cues to initiate task due to confusion. Initial apraxia/confusion noted when handling washcloth and pt appeared to be hallucinating briefly. OT ADL-Oral Care General Eval Oral Care Ability Standby Assistance Areas of Assistance Brushing Teeth,Retrieving/Set- Up of Items Devices Oral Care Devices Toothbrush Comments Oral Care Comments Pt needs mod verbal cues to problem solve oral care set up in unfamiliar setting. OT ADL-Dressing General Eval Upper Body Dressing Ability Moderate Assistance Lower Body Dressing Ability Total Assistance Comments OT Dressing Comments Pt needs mod assist to change wet gown due to IV and heart monitor confusing to pt. OT ADL-Toileting General Evaluation Toileting Ability Total Assistance Areas Needing Assistance Empty Catheter or Colostomy Comments OT Toileting Comments martin on place M6 OT- IP Functional Cognition Start: 02/19/19 14:37 Freq: Status: Active Protocol: Document 02/20/19 09:20 PJM (Rec: 02/20/19 10:35 PJ [id number]) Cognitive Factors Limiting Selfcare Function Cognitive Ability Level of Alertness Alert,Confusional State Patient Orientation Name Attention Span Ability Capable of Focused Attention, Unable to Sustain Attention Ability to Follow Commands Able to Follow One Step Commands Memory Description Immediate Impaired,Short Term Impaired Safety Awareness Decreased Recall of Precautions,Decreased Ability to Apply Precautions, Underestimates Need for Assistance Problem Solving Ability Unable to Identify Errors, Needs Assist to Identify Solutions Executive Function Ability Unable to Filter Distractions, Unable to Make Plans,Unable to Organize Plans,Unable to Remember Details,Unable to Curb Inappropriate Speech, Unable to Integrate Past Experience With Present Action Abstract Thinking Ability Unable to Make Generalizations ,Unable to Understand Generalizations,Unable to Draw Logical Conclusions,Unable to Apply Concepts to New Surroundings,Unable to Apply Concepts to New Situations Cognitive Comments Cognitive Assessment Comments Pt quite anxious and hyperverbal, asking questions about many people's safety. Easily startled but able to be gently directed to tasks and able to complete simple self care tasks after set up. Does well with repetitive distracting tasks such as folding wash cloths. Pt pleasant and cooperative throughout session. OT- Vision and Hearing OT- Hearing Assessment OT- Hearing Assessment WFL OT- Vision Assessment Vision Assessment Comments Pt able to read nurse and KENO MANAGER names on white board but does not process who they are. M8 OT- IP Objective Assessments Start: 02/19/19 14:37 Freq: Status: Active Protocol: Document 02/19/19 15:34 PJM (Rec: 02/19/19 15:58 PJM [id number]) OT Gross Range of Motion Upper Extremity Range of Motion Assessment Within Functional Limits OT Strength Upper Extremity Strength Assessment Within Functional Limits Hand Cream Separator Operator Strength Hand Dominance Right Comments Strength Comments no focal weakness noted OT- Coordination Assessment Comments Coordination Comments WFL during self care tasks such as oral care set up OT-Muscle Tone Assessment Muscle Tone WNL Yes OT Sensation Assessment Comments Summary Comments appears WFL by observation M9 OT- IP Assessment and Plan Start: 02/19/19 14:37 Freq: Status: Active Protocol: Document 02/20/19 09:20 PJM (Rec: 02/20/19 10:35 PJ [id number]) OT Summary Assessment and Plan Potential Rehabilitation Potential Fair Analytic Complexity at Evaluation Low Summary OT Impairments Functional Cognition, Functional Mobility,Grooming, Dressing,Toileting,Bathing, Toilet Transfers,Shower Transfers Progress Towards Goals Slow Progress due to Cognition Assessment Summary Pt able to participate in basic self care tasks, after set up, despite high anxiety level and significantly decreased attention/ concentration. Pt does follow one step commands with repetition and redirection required, but pleasant and cooperative. Per son, pt is not at usual baseline level of cognition. Pt will need SNF at d/c for further rehab services with potential to improve as medication effects clear. Goals Self-Feeding Goal Standby Assistance Grooming Goal Standby Assistance Dressing Goal Minimal Assistance Toileting Goal Moderate Assistance Bathing Goal Minimal Assistance Toilet Transfer Goal Minimal Assistance,Raised Toilet Seat,Grab Bars OT-Other Goals Bathing goal is for upper body sponge bath in chair Days to Meet Goals 7 Frequency of Treatment Frequency Of Treatment Once a Day Treatment Plan OT Treatment Plan ADL Training,Functional Mobility,Patient/Family Education,Discharge Planning Discharge Recommendations OT Discharge Recommendations SNF Rehab Home Equipment Needs to be determined in next rehab setting pending progress
--- NOTE | 2019-02-20 10:55 | PT.IPTN ---
Current Diagnoses Poisoning by benzodiazepines, accidental (unintentional), initial encounter (02/19/19) Physical Therapy Treatment Note M2 PT-IP Current Condition Start: 02/19/19 13:16 Freq: NEEDED Status: Active Protocol: Document 02/19/19 11:15 AB (Rec: 02/19/19 13:37 AB [id number]) Physical Therapy Current Condition Current Condition Evaluation Date 02/19/19 Treatment Diagnosis altered mental status; bacteriuria; difficulty in walking Onset Date 02/19/19 Precautions Other Precautions falls M3 PT-IP Subjective Start: 02/19/19 13:16 Freq: NEEDED Status: Active Protocol: Document 02/20/19 10:55 GGD (Rec: 02/20/19 12:33 GGD [id number]) Subjective Physical Therapy Visit Type Type Treatment Note Visit Start Time 10:25 Visit Stop Time 10:55 Total Visit Minutes 30 Physical Therapy Visit Comments Patient Comments Pt states she needs to use bathroom. M4 PT-IP Mobility and Gait Start: 02/19/19 13:16 Freq: NEEDED Status: Active Protocol: Document 02/20/19 10:55 GGD (Rec: 02/20/19 12:33 GGD [id number]) PT-Bed Mobility Assessment Supine to Sit Supine to Sit Contact Guard Assistance,1 Person Assistance Sit to Supine Sit to Supine Minimal Assistance,1 Person Assistance Scooting Scooting to Edge of Bed Contact Guard Assistance PT-Transfer Assessment Sit to and From Stand Sit to and from Stand Contact Guard Assistance,1 Person Assistance,Use of Upper Extremities Equipment Transfer Assistive Device Gait Belt,Front Wheeled Walker Orthotic/Prosthetic Devices or Brace: No Transfers Transfer Destination Bed,Bedside Commode Transfer Ability Level of Assist Minimal Assistance,1 Person Assistance,Use of Upper Extremities Gait Assessment Gait Gait Assistance Required: Minimum Assistance,1 Person Assist Distance (Feet) 30 Able to Maintain Weight Bearing Status Yes During Gait Assistive Devices Assistive Device Gait Belt,Front Wheeled Walker Orthotic/Prosthetic Devices or Brace: No Gait Deviations General Gait Pattern Antalgic,Ataxic,Decreased Feet Clearance Factors Limiting Gait Function Factors Limiting Gait Function Decreased Activity Tolerance, Decreased Strength,Difficulty Following Directions,Poor Balance,Poor Safety Awareness Comments Gait Comments pt unable to follow directions . M5 PT-IP Objective Assessments Start: 02/19/19 13:16 Freq: NEEDED Status: Active Protocol: Document 02/19/19 11:15 AB (Rec: 02/19/19 13:37 AB [id number]) Orientation Orientation/Cognition Level of Alertness Confusional State Orientation Name,Birthday Safety Awareness Decreased Safety Awareness Memory Description Short Term Impaired,Molder Meat Impaired Comments pt does not know where she is at, does not know the date and why she is in the hospital. Gross Range of Motion Lower Extremity ROM Assessment Within Functional Limits Strength Lower Extremity Strength Assessment Bilaterally Impaired Comments Strength Comments BLE 3+/5 Sensation Assessment Sensation Gross Sensation WNL Muscle Tone Muscle Tone WNL Yes M6 PT-IP Treatment Start: 02/19/19 13:16 Freq: NEEDED Status: Active Protocol: Document 02/19/19 11:15 AB (Rec: 02/19/19 13:37 [id number]) Physical Therapy Treatment Education Education Provided Safety M7 PT-IP Assessment and Plan Start: 02/19/19 13:16 Freq: NEEDED Status: Active Protocol: Document 02/20/19 10:55 GGD (Rec: 02/20/19 12:33 GGD [id number]) PT Summary Assessment and Plan Summary Assessment Summary Pt is improving with mobility. She is impulsive and unable to follow directions. She is not safe for mobility without assistance. Frequency of Treatment Frequency Of Treatment Once a Day Treatment Plan Physical Therapy Treatment Plan Bed Mobility Training,Transfer Training,Gait Training, Therapeutic Exercise,Balance Retraining,Discharge Planning, Neuromuscular Re-ed, Coordination Retraining Recommendations To Nursing Amount of Assist Needed 1 Person Assist Discharge Recommendations PT Discharge Recommendations SNF Rehab
--- NOTE | 2019-02-20 11:36 | PC.NURSE ---
Pt is very confused, Can state her name. Attempt to orient the Pt to place & time. Pt unable to cpmprehend. Pt's son visited this AM, Pt did not recognize , Pt states this is my Conduit Reamer Operator about her son. Son then left the room. Pt assisted with 2 people & walker to bsc, Pt does not follow instructions well. High risk of falls.
--- NOTE | 2019-02-20 11:47 | DIET.PN ---
Dietary Progress Note Assessment: 83y F referred to nutrition for MNA score 8 (at risk for malnutrition) r/t altered mentation and hyperglycemia. Pt inappropriate for interviewing r/t altered mentation, also in hospital, also found down. Because they live at home alone, unclear if pt following DM appropriate diet (BG range 247-298 upon admission, found down). Per hospitalist report, pt son shared photos of rotten food and urine soaked mattress. For home DM management, pt takes metformin 500mg QID and glipizide 5mg TID. This RD questions ability of pt to manage DM medication regimin at home as pt son reports pt mentation has declined over past 7y. HT: 152.4cm WT: 70.3kg BMI: 30.3 Labs: BG 247-298 (H) Interventions: recc ONS glucerna tid r/t altered mental status in order to support PO intake which are currently ~50%. Monitoring/Evaluations: POs
--- NOTE | 2019-02-20 13:52 | PC.NURSE ---
Changed out patient's bed due to bed alarm not working. Transferred patient to wheel chair temporarily to switch out beds, then transferred patient back into bed. Bed alarm is working.
--- NOTE | 2019-02-20 14:02 | PC.NURSE ---
1400 Pt remains confused. Oriented to name only. Pt has diff following simple inst. Pt had a sml BM in BSC, up oob w/ 2 people assist w/gait belt & walker for safety. Family at bedside now, Pt eating a hamburger.
--- NOTE | 2019-02-20 14:06 | PM.PN.1 ---
Subjective Subjective Date Patient Seen: 02/20/19 Time Patient Seen: 14:32 Interval history: Ms. Yasmine Manzano is an 83-year-old female patient with a history significant for diabetes, hypertension hypothyroidism and glaucoma presented to the ER after being found down on the floor at her home. Today she is more alert than previous days but still confused. She waxes and wanes between alert and oriented times 0 to x2. She is also restless at times. She denies specific complaints today. Exam Vital Signs (past 8 hours): - 02/20/19 08:00 02/20/19 09:00 02/20/19 11:55 Temperature 97.9 F Pulse Rate 78 64 Respiratory Rate 20 18 Blood Pressure 169/81 H 133/42 L Pulse Oximetry 97 96 96 02/20/19 13:00 Temperature Pulse Rate Respiratory Rate Blood Pressure Pulse Oximetry 96 Oxygen Delivery Method Room Air Oxygen Flow Rate 0 Narrative Exam Narrative: GENERAL APPEARANCE: Disheveled, chronically ill appearing. SKIN: Inspection of the skin reveals no rashes, ulcerations or petechiae. HEENT: The sclerae were anicteric and conjunctivae were pink and moist. Extraocular movements were intact and pupils were equal, round with normal accommodation. External inspection of the ears and nose showed no scars, lesions, or masses. Lips, teeth, and gums showed normal mucosa. NECK: Supple and symmetric. There was no thyroid enlargement, and no tenderness, or masses were felt. CHEST: Normal AP diameter and normal contour without any kyphoscoliosis. LUNGS: Auscultation of the lungs revealed no wheezes, rhonchi, or rales. CARDIOVASCULAR: There was a regular rate and rhythm without any murmurs, gallops, rubs. Peripheral pulses were 2+ and symmetric. ABDOMEN: Soft and nontender with normal bowel sounds. No ascites was noted. MUSCULOSKELETAL: There was no tenderness or effusions noted. Muscle strength and tone were normal. EXTREMITIES: No cyanosis, clubbing or edema. NEUROLOGIC: Alert and oriented x 2. Slightly agitated and constantly moving. Strength is +5/5 in the Upper Extremities and Lower Extremities Bilaterally. Sensation to touch was normal. Objective Labs Result Diagrams: 02/19/19 05:55 02/19/19 05:55 Assessment & Plan Assessment & Plan narrative: Ms. Yasmine Manzano is an 83-year-old female patient with a history significant for diabetes, hypertension hypothyroidism and glaucoma presented to the ER after being found down on the floor at her home. 1. Acute delirium -likely secondary to toxic metabolic encephalopathy given history with alprazolam, however differential includes worsening dementia. Her mental status is slowly improving consistent with a toxic metabolic encephalopathy, but her baseline cognition is unclear at this time. -patient is confused at baseline per family report as related by ER provider with somewhat worsening confusion. This is most likely related to alprazolam overuse or potentially withdrawal however the patient is not tachycardic or showing other evidence of withdrawal at this time. She further has a history medication misuse with alprazolam and prior admission for metabolic encephalopathy. -head CT is negative for intracranial pathology does no cerebral volume loss with chronic low white matter small-vessel changes consistent with dementia. This may be a progressive dementia as well. -PT/OT evaluation 2. Acute dehydration, present on admission, Resolved. -patient had dry mucous membranes, ketones in the urine, BUN creatinine ratio of 53.3:1 -heart healthy/consistent carbohydrate diet. -will monitor chemistries 3.History of medication misuse -patient had previously been admitted for misuse of medications with metabolic encephalopathy related to use of alprazolam, suspect similar etiology this admission. 4. Diabetes, type II, chronic- - continue lantus 10 U nightly with sliding scale lispro 5. Glaucoma - continue home timolol drops. DVT: daily lovenox Dispo: PT/OT evaluations recommending SNF rehab, will work with administrator health care facility on placement. Quality VTE Deep Vein Thrombosis/Pulmonary Embolism Present on Admission: No
--- NOTE | 2019-02-20 15:03 | CM.DANOTE ---
Addendum entered by TO Michael 02/20/19 15:48: PASRR completed in anticipation of SNF at d/. BF Original Note: Patient is an 83 year old female who was admitted on 02/19/19 for Increased Confusion, Hyperglycemia. Pt has [facility] and [employer] for insurance and her PCP is Dr. John. EMR was reviewed. Per MD, pt is more alert and awake today but more aggitated from her withdrawal off her medication she accidentally overdosed on. Pt is confused at baseline without dx of dementia but over the past few years has become increasingly confused and memory loss. Per PT/OT, pt is not oriented and is not able to make sense or follow commands or redirected at this time. Recommending SNF at d/. Pt not appropriate to participate in bedside assessment at this time. Therefore SW met with pt's son Christiano and Dtr ravi Oreilly ([phone]) and they confirm that the pt and spouse (who was also admitted to [facility] at the same time) live at home in [place] and they do not have any further supportive services in place as they have historically been very resistant to help in the home. The house has deteriorated to the point that it seems unhealthy and a risk to return with urine soaked bed, spoiled food on the counters, and disarray of hoarding type behaviors. Pt's spouse is her primary CG and pays bills on auto pay and helps fix meals although he has begun to decline and have difficulty even using the microwave. Both utilize a walker for ambulation and both end up doing sponge baths due to mobility and strength issues. Pt has a hx of SNF at [facility] in 2017 and family states that pt had a good experience there for about 2 months and preference is [facility] at d/. Pt has declined DPOA in the past and currently is not oriented enough to have discussion regarding DPOA. SW highly encouraged family to make an APS report towards possibly helping to get the pt and spouse set up with the services that they need to live in a safe environment and provided them with the phone and online APS options to report. SW also began discussion the need to begin gathering information for LTC for the pt and spouse as Son and DIL do not feel that they will likely be safe for return back home ever, unless they improve greatly at SNF to return home with Caregivers in the home. SW provided and discussed info on Medicaid application, but they feel pt is over qualified financially for Medicaid, AFH, HALFWAY, memory care, private pay caregivers and [facility]. Family very appreciative and aware that they need to begin finding out financial cost of all to determine best fit for LTC. SW made referral to [facility] via phone to admissions and CC Evelyne faxed clinicals to [facility] for review. SW discussed pt and spouse status and situation and they will review to determine if they can accept knowing possible need for LTC vs home with CG. SW made online report to APS as well. Plan: SW to follow closely for [facility] review for possible placement for pt and spouse at d/c. SW to follow closely for ongoing coordination with pt (if she clears some), son and DIL, and spouse for discharge needs. TO Michael Discharge Planning/Care Management CM Discharge Assessment Start: 02/20/19 15:00 Freq: Status: Active Protocol: Document 02/20/19 15:00 (Rec: 02/20/19 15:03 [id number]) Discharge Planning Assessment Assigned Spot Worker TO Chase DPOA/Assigned Designee Name none Advance Directives? No Advance Directives on File No History Provided By Family Member,Medical Record Has Patient been admitted in last 30 No days? Prior Living Arrangements House Household Members spouse Type of transporation used prior to Relies on Others admit Independent with ADL's No Is patient alert and oriented? No: Increased memory issues Needs Assistance With Bathing,Grooming,Meal Prep, Managing Medications,Home Chores / Shopping Caregiver for Another No DME Already Rented / Owned FWW / Walker Patient/Family Preference Longterm Facility Barriers to Discharge Yes Comment LTC plan to be determined, may not be safe for return home again Discharge Plan Longterm Facility Transportation Arrangement If SNF then facility will transport Referrals Initiated Longterm Medicare Choice List Provided Yes SNF/HH Preference [facility] Has Agency SNF been contacted Yes Review Status In Process Please Provide Date Initial DC 02/20/19 Assessment Was Performed Next Review Type Continued Stay Review
[2019-02-20] MEDS: ALPRAZolam 0.5 MG TABLET PO (18:00)
[2019-02-20] MEDS: ACETAMINOPHEN 325 MG TABLET 650 MG PO (18:01)
[2019-02-20] MEDS: INSULIN GLARGINE 100 UNIT/ML 3ML PEN 10 UNIT SUBCUT (22:15)
--- NOTE | 2019-02-20 22:45 | PC.NURSE ---
Evening notes: [id number]: Yasmine very agitated, calling every person walking by in room, delirious with rambling speech. Speech clear, although sentence topic runs into a different topic alltogether, not making any sense. Said you are trying to kill all my children & grandchildren, accused us of poisoning her water, holding onto water bottle tightly. Refused insulin pre-meal, refused meal. Started grabbing hold of her catheter tubing, kinking line, saying I can't let go or all the water will run out! We need water! Offered water from cup several times. Pushing me away, not able to reorient her or calm her down. I notified Dr Mercedes of these things, and asked if he thought that she may be withdrawing from Alprazolam? He said yes he thinks that may be the case, and ordered one time dose of Alprazolam 0.5 mg which was given. Pt would not take pill from me until I provided her a sealed water bottle. Once she had water bottle & I told her the Dr wanted her to have her Xanax, her face lit up & she said oh really? and yes I would like that very much and God bless you. She took packet from me, ripped open package and put pill in mouth, swallowing with sips of water. She also accepted 1 tylenol for PINON pain, refusing 2nd tab. After about 40 minutes she asked will you cook me my Aashish Tony? It's in the freezer--can you cook? Meal tray provided, she ate the entire meal. After that dozing intermittently, calm, cooperative. Still confused to place, time & situation but telling nurse stories and conversing calmly. Dr Mercedes gave me verbal order to DC martin catheter. When I explained this to patient she became very gaurded and said no-I don't think you should do that. 2199: Patient up to BSC, could not have BM. Back to bed. MANAGER INTELLIGENCE gave her bed bath, she is now sleeping. CBG 300, SS and Lantus given as ordered.
--- NOTE | 2019-02-20 23:35 | PC.NURSE ---
Addendum entered by Arely Sterling R.N. 02/21/19 06:17: Pt continues to appear to be resting comfortably. Emptied martin of 200ml frank urine, pt had respirations of 18. Per ENVIRONMENTAL HEALTH SAFETY ENGINEER's verbal orders allowed pt uninterrupted sleep over night as pt's mentation was worsening yesterday in hopes that she would have a better day with a full night of sleep. Coordinator made aware that pt was allowed to sleep and that vital signs and full assessment was not completed to allow rest. Addendum entered by Arely Sterling R.N. 02/21/19 04:31: Pt continues to appear to be resting comfortably, respirations of 18. Addendum entered by Arely Sterling R.N. 02/21/19 02:48: Pt still appears to be resting comfortably, has turned herself from back to left side, respirations of 18. Addendum entered by Arely Sterling R.N. 02/21/19 00:58: Pt still appears to be resting comfortably, respirations of 15. Original Note: Shift note: Received pt from evening shift. Pt currently resting in bed, appears comfortable. According to notes, pt had a difficult day today. Spoke to ENVIRONMENTAL HEALTH SAFETY ENGINEER about orders to remove martin and concerns for agitating pt as this RN has had her for the previous two nights and has not rested on manufacturing shift supervisor. Requested that she be allowed to sleep and the cares be limited to when pt is awake including attempts to remove martin. ENVIRONMENTAL HEALTH SAFETY ENGINEER agreed that it was in best interest to let pt sleep at this time and to allow for as much uninterrupted sleep as possible. Will monitor pt from the door, bed alarm is active and this RN sitting directly across with direct view of pt. Will approach when/if pt wakes up on this shift.
[2019-02-21] VITALS (9 sets, daily range): BP systolic 132–170; BP diastolic 63–78; PULSE 67–85; RESP 16–19; TEMP 36.6–36.8; O2SAT 95–98
[2019-02-21] MEDS: ACETAMINOPHEN 325 MG TABLET 650 MG PO ×2 (07:30→16:34)
[2019-02-21] MEDS: INSULIN ASPART 100 UNIT/ML INSULN PEN SUBCUT ×4 (08:16→21:54)
[2019-02-21] MEDS: ENOXAPARIN 40 MG/0.4 ML SYRINGE SUBCUT (08:23)
[2019-02-21] MEDS: TIMOLOL 0.5% OPHTH 1 DROPS EYE-BOTH ×2 (08:23→21:53)
[2019-02-21] MEDS: SODIUM CHLORIDE 0.9% FLUSH 10 ML IV (08:24)
--- NOTE | 2019-02-21 12:00 | PT.IPTN ---
Current Diagnoses Poisoning by benzodiazepines, accidental (unintentional), initial encounter (02/19/19) Physical Therapy Treatment Note M2 PT-IP Current Condition Start: 02/19/19 13:16 Freq: NEEDED Status: Active Protocol: Document 02/19/19 11:15 AB (Rec: 02/19/19 13:37 AB [id number]) Physical Therapy Current Condition Current Condition Evaluation Date 02/19/19 Treatment Diagnosis altered mental status; bacteriuria; difficulty in walking Onset Date 02/19/19 Precautions Other Precautions falls M3 PT-IP Subjective Start: 02/19/19 13:16 Freq: NEEDED Status: Active Protocol: Document 02/21/19 12:00 GGD (Rec: 02/21/19 12:31 GGD [id number]) Subjective Physical Therapy Visit Type Type Treatment Note Visit Start Time 11:39 Visit Stop Time 12:00 Total Visit Minutes 21 Number of AQUATIC ECOLOGIST Visits 2 Physical Therapy Visit Comments Patient Comments Pt states she would like to use the bathroom. M4 PT-IP Mobility and Gait Start: 02/19/19 13:16 Freq: NEEDED Status: Active Protocol: Document 02/21/19 12:00 GGD (Rec: 02/21/19 12:31 GGD [id number]) PT-Bed Mobility Assessment Supine to Sit Supine to Sit Standby Assistance,1 Person Assistance Sit to Supine Sit to Supine Contact Guard Assistance,1 Person Assistance Scooting Scooting to Edge of Bed Contact Guard Assistance PT-Transfer Assessment Sit to and From Stand Sit to and from Stand Contact Guard Assistance,1 Person Assistance,Use of Upper Extremities Equipment Transfer Assistive Device Gait Belt,Front Wheeled Walker Orthotic/Prosthetic Devices or Brace: No Transfers Transfer Destination Bed,Toilet Transfer Ability Level of Assist Contact Guard Assistance,1 Person Assistance,Use of Upper Extremities Gait Assessment Gait Gait Assistance Required: Standby Assistance,1 Person Assist Distance (Feet) 20 Able to Maintain Weight Bearing Status Yes During Gait Assistive Devices Assistive Device Gait Belt,Front Wheeled Walker Orthotic/Prosthetic Devices or Brace: No Gait Deviations General Gait Pattern Antalgic,Ataxic,Decreased Feet Clearance Factors Limiting Gait Function Factors Limiting Gait Function Decreased Activity Tolerance, Decreased Strength,Difficulty Following Directions,Poor Balance,Poor Safety Awareness M5 PT-IP Objective Assessments Start: 02/19/19 13:16 Freq: NEEDED Status: Active Protocol: Document 02/19/19 11:15 AB (Rec: 02/19/19 13:37 [id number]) Orientation Orientation/Cognition Level of Alertness Confusional State Orientation Name,Birthday Safety Awareness Decreased Safety Awareness Memory Description Short Term Impaired,Senior Care Impaired Comments pt does not know where she is at, does not know the date and why she is in the hospital. Gross Range of Motion Lower Extremity ROM Assessment Within Functional Limits Strength Lower Extremity Strength Assessment Bilaterally Impaired Comments Strength Comments BLE 3+/5 Sensation Assessment Sensation Gross Sensation WNL Muscle Tone Muscle Tone WNL Yes M6 PT-IP Treatment Start: 02/19/19 13:16 Freq: NEEDED Status: Active Protocol: Document 02/19/19 11:15 AB (Rec: 02/19/19 13:37 [id number]) Physical Therapy Treatment Education Education Provided Safety M7 PT-IP Assessment and Plan Start: 02/19/19 13:16 Freq: NEEDED Status: Active Protocol: Document 02/21/19 12:00 GGD (Rec: 02/21/19 12:31 GGD [id number]) PT Summary Assessment and Plan Summary Assessment Summary Pt improving with mobility. She had improved safety awareness and ability to follow directions. She needed no assist to manage FWW. Frequency of Treatment Frequency Of Treatment Once a Day Treatment Plan Physical Therapy Treatment Plan Bed Mobility Training,Transfer Training,Gait Training, Therapeutic Exercise,Balance Retraining,Discharge Planning, Neuromuscular Re-ed, Coordination Retraining Recommendations To Nursing Amount of Assist Needed 1 Person Assist Discharge Recommendations PT Discharge Recommendations SNF Rehab
--- NOTE | 2019-02-21 12:40 | OT.IP.TRT ---
Current Diagnoses Poisoning by benzodiazepines, accidental (unintentional), initial encounter (02/19/19) Occupational Therapy Treatment Note M2 OT-IP Current Condition Start: 02/19/19 14:37 Freq: Status: Active Protocol: Document 02/19/19 15:34 PJM (Rec: 02/19/19 15:58 PJM [email or web address]) Occupational Therapy Current Condition Current Condition Evaluation Date 02/19/19 Treatment Diagnosis altered mental status, decr'd self care, hallucinating, ? medication misuse Diagnosis Onset Date 02/19/10 Post Operative Precautions Other Precautions confusion, high fall risk, bed /chair alarm M3 OT- IP Subjective and Pain Start: 02/19/19 14:37 Freq: Status: Active Protocol: Document 02/21/19 12:23 CCC (Rec: 02/21/19 12:40 CCC [email or web address]) OT- Subjective Occupational Therapy Visit Type Type Treatment Note Visit Start Time 11:00 Visit Stop Time 11:20 Total Visit Minutes 20 Occupational Therapy Visit Comments Patient Comments Pt pleasant and agreeable to do cognitive assessment. OT Pain Assessment Pain When Pain Assessed At Rest Pain Present Pain Present Denied Pain M4 OT- IP ADL's Start: 02/19/19 14:37 Freq: Status: Active Protocol: Document 02/20/19 09:20 PJM (Rec: 02/20/19 10:35 PJM [id number]) OT ADL-Grooming General Evaluation Grooming Ability Standby Assistance Areas Needing Assistance Retrieving/Set-up of Grooming Items,Combing/Brushing Hair, Face Washing Comments OT Grooming Comments Pt needs mod verbal cues to initiate task due to confusion ; intial apraxia/confusion noted when handling washcloth and pt appeared to be hallucinating briefly OT ADL-Oral Care General Eval Oral Care Ability Standby Assistance Areas of Assistance Brushing Teeth,Retrieving/Set- Up of Items Devices Oral Care Devices Toothbrush Comments Oral Care Comments Pt needs mod verbal cues to problem solve oral care set up in unfamiliar setting. OT ADL-Dressing General Eval Upper Body Dressing Ability Moderate Assistance Lower Body Dressing Ability Total Assistance Comments OT Dressing Comments Pt needs mod assist to change wet gown due to IV and heart monitor confusing to pt. OT ADL-Toileting General Evaluation Toileting Ability Total Assistance Areas Needing Assistance Empty Catheter or Colostomy Comments OT Toileting Comments martin on place M5 OT- IP IADL's Start: 02/19/19 14:37 Freq: Status: Active Protocol: Document 02/19/19 15:34 PJM (Rec: 02/19/19 15:58 PJM [id number]) OT-Instrumental Activities of Daily Living Deficits IADL Deficits Identified Deficits Home Safety Awareness Awareness of Need for Assistance at Home Decreased Awareness Ability to Problem Solve Emergency Unable to Problem Solve Situations Medication Management Medication Management Comments per chart notes, suspect pt has been misusing alprazolone, memory deficits interfere with safe medication management Money Management Money Management Caregiver Provides Assistance Money Management Comments pays bills on auto pay Meal Preparation Meal Preparation Caregiver Provides Assist Meal Preparation Comments assists , but he is unable to initiate or complete appropriate meal preparation, spoiled food found in home Hockey Player Hockey Player Comments house in disarray per chart notes with dirty clothes and spoiled food throughout, daughter in law assists with grocery shopping Driving Driving Comments pt and josead do not drive M6 OT- IP Functional Cognition Start: 02/19/19 14:37 Freq: Status: Active Protocol: Document 02/21/19 12:23 CCC (Rec: 02/21/19 12:40 [facility] [id number]) Cognitive Factors Limiting Selfcare Function Cognitive Ability Level of Alertness Alert,Confusional State Patient Orientation Name Attention Span Ability Capable of Focused Attention, Unable to Sustain Attention Ability to Follow Commands Able to Follow One Step Commands Memory Description Short Term Impaired Safety Awareness Underestimates Need for Assistance Problem Solving Ability Unable to Identify Errors, Needs Assist to Identify Solutions Executive Function Ability Unable to Hold Focus,Unable to Switch Focus,Unable to Filter Distractions,Unable to Remember Details Cognitive Tests SLUMS Pt scored 7/30 and only able to correctly what state we are in, add two digit number, recall 3/5 objects after time passed , name 8 animals in one minute, and able to point to the largest shape out of three . Normal score for pt's 4th grade education is 25/30. Cognitive Comments Cognitive Assessment Comments Pt highly distracted, unable to stay on topic and very tangential. Pt not able to state what to do in case of chest pain, otherwise able to state not answer the door for a stranger and answer the phone for scam call, know to call the doctor if out of medications, and to turn off the water if toilet flows. Pt not able to state to call 911 in case of a fire. M7 OT- IP Mobility and Balance Start: 02/19/19 14:37 Freq: Status: Active Protocol: Document 02/19/19 15:34 PJM (Rec: 02/19/19 15:58 PJM [email or web address]) OT-Transfer Assessment Comments Mobility Comments see P.T. notes; pt adamantly declined OOB this session OT- Gait Assessment Comments Gait Ability Comments see P.T. notes OT- Balance Assessment Comments Other Balance Tests/Deviations/Treatment see P.T. notes : M8 OT- IP Objective Assessments Start: 02/19/19 14:37 Freq: Status: Active Protocol: Document 02/19/19 15:34 PJM (Rec: 02/19/19 15:58 PJM [id number]) OT Gross Range of Motion Upper Extremity Range of Motion Assessment Within Functional Limits OT Strength Upper Extremity Strength Assessment Within Functional Limits Hand Roller Skate Repairer Strength Hand Dominance Right Comments Strength Comments no focal weakness noted OT- Coordination Assessment Comments Coordination Comments further assessment to follow OT-Muscle Tone Assessment Muscle Tone WNL Yes OT Sensation Assessment Comments Summary Comments appears WFL by observation M9 OT- IP Assessment and Plan Start: 02/19/19 14:37 Freq: Status: Active Protocol: Document 02/21/19 12:23 CCC (Rec: 02/21/19 12:40 CCC [email or web address]) OT Summary Assessment and Plan Potential Rehabilitation Potential Fair Analytic Complexity at Evaluation Low Summary OT Impairments Functional Cognition, Functional Mobility,Grooming, Dressing,Toileting,Bathing, Toilet Transfers,Shower Transfers Progress Towards Goals Slow Progress due to Cognition Assessment Summary Pt doing better to follow with conversations but highly tangential. Pt far from baseline and would benefit from skilled rehab prior to going home. Goals Self-Feeding Goal Standby Assistance Grooming Goal Standby Assistance Dressing Goal Minimal Assistance Toileting Goal Moderate Assistance Bathing Goal Minimal Assistance Toilet Transfer Goal Minimal Assistance,Raised Toilet Seat,Grab Bars OT-Other Goals shower Days to Meet Goals 5 Frequency of Treatment Frequency Of Treatment Once a Day Treatment Plan OT Treatment Plan ADL Training,Functional Mobility,Patient/Family Education,Discharge Planning Discharge Recommendations OT Discharge Recommendations SNF Rehab Home Equipment Needs to be determined in next rehab setting pending progress
--- NOTE | 2019-02-21 14:19 | CM.DPNOTE ---
DCP Cont: Reviewed chart. Pt and her spouse (in rm #[id number]) expected to be medically stable tomorrow, 9.13.19. Placed call to [facility] and spoke w/Marsha. She expressed concern over lack of meterman care plan from family at this time but she and clinical research administrator have planned a bedside assessment w/pt and spouse tomorrow at 1200. According to OT Flower , both pt and spouse have scored a 7 out of 30 on SLUMS cognitive screen. SLOT FLOORPERSON June said that pt's safety awareness has much improved and she is able to engage in therapy session this morning. Met w/pt?s son Christiano and ROBERT Oreilly in pt's spouse, Giuliano's, room, explained low SLUMS score. Afia and Christiano state they wanted to ?respect their parent?s wishes to remain home? this VACUUM PLASTIC FORMING MACHINE OPERATOR encouraged family to consider that pt/spouse are no longer safe in their home and it?s time to take a more active role in planning for pt/spouse?s increased future care. Giuliano has made his son Christiano DPOA. Family understand and know that pt/spouse are financially secure and they will start w/pt/spouse bank to determine steps to getting on to bank acct to assist w/securing a group home care plan/placement. This VACUUM PLASTIC FORMING MACHINE OPERATOR strongly encouraged family to get to their parent's bank RAMONITA and this VACUUM PLASTIC FORMING MACHINE OPERATOR can assist w/ideas for LTC options w/private payment. All hopeful that pt/spouse will be accepted to [facility] tomorrow w/Medicare to cover for 90 days then privately pay at a secured [facility] vs AF vs Memory care unit. Following closely for coordination of safe DCP for both pt and her spouse giuliano. Randa Gomes VACUUM PLASTIC FORMING MACHINE OPERATOR
--- NOTE | 2019-02-21 15:02 | PC.NURSE ---
1430 Pt had the martin dcd at approx 1130. Pt has not voided since. Pt denies need to urinate at this time. Pt remains confused, but is very pleasant & cooperative.
--- NOTE | 2019-02-21 17:40 | PM.PN.1 ---
Subjective Subjective Date Patient Seen: 02/21/19 Time Patient Seen: 10:50 Interval history: Ms. Yasmine Manzano is an 83-year-old female patient with a history significant for diabetes, hypertension hypothyroidism and glaucoma presented to the ER after being found down on the floor at her home. Today she is more alert than previous days but still confused. She waxes and wanes between alert and oriented times 0 to x2. She is also restless at times. She denies specific complaints today. She is very tangential when speaking and has no insight as to why she is in the hospital currently. She is however more consistently Alert and oriented x2. Yesterday evening she had an episode of paranoid ideations and was agitated, she was also mildly tachycardic so the thought could be that she was withdrawing somewhat from her Xanax. She received a dose of Xanax and improved very quickly, today she has not required any further benzos. Exam Vital Signs (past 8 hours): - 02/21/19 11:44 02/21/19 12:00 02/21/19 15:09 Temperature 97.8 F 97.9 F Pulse Rate 67 76 Respiratory Rate 16 18 Blood Pressure 162/75 H 170/65 H Pulse Oximetry 96 98 97 Oxygen Delivery Method Room Air Oxygen Flow Rate 0 Narrative Exam Narrative: GENERAL APPEARANCE: Disheveled, chronically ill appearing. SKIN: Inspection of the skin reveals no rashes, ulcerations or petechiae. HEENT: The sclerae were anicteric and conjunctivae were pink and moist. Extraocular movements were intact and pupils were equal, round with normal accommodation. External inspection of the ears and nose showed no scars, lesions, or masses. Lips, teeth, and gums showed normal mucosa. NECK: Supple and symmetric. There was no thyroid enlargement, and no tenderness, or masses were felt. CHEST: Normal AP diameter and normal contour without any kyphoscoliosis. LUNGS: Auscultation of the lungs revealed no wheezes, rhonchi, or rales. CARDIOVASCULAR: There was a regular rate and rhythm without any murmurs, gallops, rubs. Peripheral pulses were 2+ and symmetric. ABDOMEN: Soft and nontender with normal bowel sounds. No ascites was noted. MUSCULOSKELETAL: There was no tenderness or effusions noted. Muscle strength and tone were normal. EXTREMITIES: No cyanosis, clubbing or edema. NEUROLOGIC: Alert and oriented x 2. Slightly agitated and constantly moving. Strength is +5/5 in the Upper Extremities and Lower Extremities Bilaterally. Sensation to touch was normal. Objective Labs Result Diagrams: 02/19/19 05:55 02/19/19 05:55 Assessment & Plan Assessment & Plan narrative: Ms. Yasmine Manzano is an 83-year-old female patient with a history significant for diabetes, hypertension hypothyroidism and glaucoma presented to the ER after being found down on the floor at her home. 1. Acute delirium -likely secondary to toxic metabolic encephalopathy given history with alprazolam, however differential includes worsening dementia. Her mental status is slowly improving consistent with a toxic metabolic encephalopathy, but her baseline cognition is unclear at this time. She had an episode of delirium yesterday which may have been due to alprazolam withdrawal and her symptoms improved with alprazolam administration. -patient is confused at baseline per family report as related by ER provider with somewhat worsening confusion. This is most likely related to alprazolam overuse or potentially withdrawal however the patient is not tachycardic or showing other evidence of withdrawal at this time. She further has a history medication misuse with alprazolam and prior admission for metabolic encephalopathy. -head CT is negative for intracranial pathology does no cerebral volume loss with chronic low white matter small-vessel changes consistent with dementia. This may be a progressive dementia as well. -patient can have xanax low dose 0.5 mg prn, but only one time doses. 2. Acute dehydration, present on admission, Resolved. -patient had dry mucous membranes, ketones in the urine, BUN creatinine ratio of 53.3:1 -heart healthy/consistent carbohydrate diet. -will monitor chemistries 3.History of medication misuse -patient had previously been admitted for misuse of medications with metabolic encephalopathy related to use of alprazolam, suspect similar etiology this admission. 4. Diabetes, type II, chronic- poorly controlled as inpatient. - increase lantus to 20 U nightly with sliding scale lispro - will check A1c to see compliance at home. 5. Glaucoma - continue home timolol drops. DVT: daily lovenox Dispo: PT/OT evaluations recommending SNF rehab, will work with healthcare network consultant on placement. Quality VTE Deep Vein Thrombosis/Pulmonary Embolism Present on Admission: No
[2019-02-21] MEDS: INSULIN GLARGINE 100 UNIT/ML 3ML PEN 20 UNIT SUBCUT (21:53)
--- NOTE | 2019-02-21 22:33 | PC.NURSE ---
Notified provider of no IV access. Per Provider okay to leave no IV access tonight and restart tomorrow if pt allows.
[2019-02-22] MEDS: ACETAMINOPHEN 325 MG TABLET 650 MG PO ×2 (02:42→08:03)
[2019-02-22 04:17] VITALS: BP 170/75; PULSE 69; RESP 16; TEMP 36.6; O2SAT 98
[2019-02-22 06:20] LABS: Add Manual Diff / Slide Review NO; Basophils Absolute Auto 0 /uL (0-100); Basophils Percent Auto 1.2 % (0-2); Eosinophils Absolute Auto 100 /uL (0-450); Hematocrit 36.9 % (36-46); Lymphocytes Absolute Auto 1300 /uL (1100-4500); Lymphocytes Percent Auto 38.5 % (25-40); Mean Corpuscular HGB Conc 32.6 % (30-36); Mean Corpuscular Volume 82.9 fL (80-100); Monocytes Absolute Auto 500 /uL (0-900); Monocytes Percent Auto 15.8 % (3-14); Neutrophils Absolute Auto 1300 /uL (1500-7000); Neutrophils Percent Auto 40.5 % (50-75); Platelet Count 235 X10^3/uL (150-400); Red Blood Cell Count 4.45 X10^6/uL (4.0-5.2); Red Cell Distribution Width 16.4 % (11.6-14.8); White Blood Cell Count 3.3 X10^3/uL (4.5-11.0)
[2019-02-22 06:29] LABS: Blood Urea Nitrogen 22 mg/dL (7-17); Calcium 9.6 mg/dL (8.4-10.2); Carbon Dioxide 27 mmol/L (22-32); Chloride 104 mmol/L (98-107); Estimated Glomerular Filt Rate > 60.0 mL/min (>60); Glucose 210 mg/dL (80-110); HEMOLYSIS < 15 (0-50); Potassium 3.6 mmol/L (3.4-5.1); Sodium 137 mmol/L (137-145)
[2019-02-22 06:39] LABS: Hemoglobin A1C% w Est Avg Glu 8.6 % (4.0-6.0)
[2019-02-22 07:39] VITALS: BP 148/78; PULSE 62; RESP 16; TEMP 36.2; O2SAT 98
[2019-02-22 08:00] VITALS: O2SAT 98
[2019-02-22] MEDS: INSULIN ASPART 100 UNIT/ML INSULN PEN SUBCUT ×2 (08:04→12:37)
--- NOTE | 2019-02-22 08:55 | P.DS_ITS ---
History of Present Illness History of Present Illness Date Patient Seen: 02/19/19 Chief complaint: increased confusion and hyperglycemia Narrative: Written by Gasper BUENO: Ms. Yasmine Manzano is an 83-year-old female patient with a history significant for diabetes, hypertension hypothyroidism and glaucoma presents to the ER after being found down on the floor at her home. The patient was visited by family today and found down on floor with more confusion than typical. The patient is unable to provide any meaningful history providing inappropriate or nonsensical responses to questions. When asked if she knew where she was she has said ?[employer]?. She is also manifesting visual hallucinations seeing bugs crawling on her sheets or other are none. Per report in the ER she was talking to individuals not present about crocked bracelet. The patient is unable to participate in a review of systems. Upon arrival in the ER the patient is afebrile with temperature 98.0?, hypertensive at 181/60, heart rate of 77, respirations 16 saturating 100% on room air. While in the ER the patient underwent head CT which found no intracranial pathology but notes moderate cerebral volume loss as well as moderate to severe chronic white matter small-vessel changes. Chest x-rays obtained which finds no acute pulmonary processes. Lab work reveals a white count of 5.3, hemoglobin of 12.8 in hematocrit of 38.8 and platelets of 274. Electrolytes are within normal limits however has a BUN of 32 and creatinine of 0.6. BUN creatinine ratio is 53.3. She is hyperglycemic with a blood sugar of 298. Lactic acid is 1.2 troponin is less than 0.012. Coags are normal. Her total CK is 261. Patient is admitted to the hospital for acute altered mental status of unknown etiology and inability to return to her former independent living setting. Discharge Providers Provider Date of admission: 02/19/19 00:49 Discharge Date: 02/22/19 Primary care physician: Don John MD Consults: 02/19/19 02:00 Consult to Dietitian, Adult Routine Comment: Reason For Exam: Reflexed from admission Consult to Policy Specialist Routine Comment: safety of living situation 02/19/19 02:18 Consult to Discharge Planning Routine Comment: 02/19/19 02:19 Consult to Occupational Therapy Evaluate & Treat Comment: Ground level fall, found down unknown reason Physician Instructions: Evaluate and treat Consult to Physical Therapy Evaluate & Treat Comment: Ground level fall, found down unknown reason Physician Instructions: Evaluate and Treat Discharge provider: Marta Rolle DO Summary Hospital Course Discharge Diagnosis: 1. Acute delirium on progressive advanced dementia, present on admission. Resolved. 2. Acute dehydration, present on admission. Resolved. 3. UTI ruled out. 4. History of medication misuse, present on admission. Active. 5. Diabetes mellitus type II, non-insulin using, chronic, present on admission. Stable. 6. Glaucoma, chronic, present on admission. Stable. 7. Hypertension, likely chronic, present on admission. Stable. 8. Generalized weakness secondary to chronic deconditioning, present on admission. Stable. Hospital Course: Yasmine Manzano is an 83-year-old female patient with a past medical history significant for hypertension, diabetes mellitus type II non-insulin using, hypothyroidism and glaucoma who presented to the ED after being found down on the floor at her home. 1. Acute delirium on progressive advanced dementia, present on admission. Resolved. -Likely multifactorial and secondary to toxic metabolic encephalopathy given history of alprazolam over/misuse and progressive worsening dementia. -Per family, the patient is confused at baseline which seems to be progressive and worsening. Patient is pleasant and without behavioral disturbance, but, concern for returning home with self-care due to poor hygiene care and inability to perform ADLs. -CT brain was negative for acute intracranial pathology and demonstrated cerebral volume loss with chronic low white matter small-vessel changes consistent with dementia. -Continued physical and occupational therapy evaluation and treatment. Occupational therapy performed SLUMS which patient scored +7/10 indicative of advanced dementia. -Discontinued benzodiazepines indefinitely and monitoring for signs of withdraw closely. Currently no signs of benzodiazepine withdrawal and would only consider giving a benzodiazepine if showing signs of withdrawal. 2. Acute dehydration, present on admission. Resolved. -Patient presented with dry mucous membranes, urine ketones, and BUN:creatinine ratio of 53:1. -Continued IV fluid hydration until adequately hydrated then discontinued. 3. UTI ruled out. -Patient received ceftriaxone x 2 doses. -Urine culture had no growth. 4. History of medication misuse, present on admission. Active. -Patient now with second hospitalization for misuse of medications with metabolic encephalopathy related to use of alprazolam. Patient also appears to have progressive worsening dementia which certainly contributes to medication misuse. -Discontinued benzodiazepines indefinitely and monitored for signs of withdraw closely. -Consulted FINANCIAL OPERATIONS CLERK to arrange for superintendent [employer] care plan including medication management. 5. Diabetes mellitus type II, non-insulin using, chronic, present on admission. Stable. -Unclear baseline. Hemoglobin A1C 8.6% indicative of poor glycemic control. -Held metformin XR 500 mg and glipizide 5 mg three times daily until time of discharge then restarted. Recommend potentially titrating up on metformin before starting long acting insulin as an outpatient. -Continued [facility] blood glucose check and due to blood glucose being significantly elevated during hospitalization she was started on basal insulin for tighter glycemic control with Lantus 20 units daily at bedtime. -Continued medium dose correctional scale insulin. 6. Glaucoma, chronic, present on admission. Stable. -Continued home timolol drops. 7. Hypertension, likely chronic, present on admission. Stable. -Patient had highly elevated blood pressure with SBP 150-170 mmHg throughout hospitalization. -Started and discharged on losartan 25 mg daily. 8. Generalized weakness secondary to chronic deconditioning, present on admission. Stable. -Continued physical and occupational therapy evaluation and treatment. Exam Vital Signs (past 8 hours): - 02/22/19 04:17 02/22/19 07:39 02/22/19 08:00 Temperature 97.8 F 97.2 F L Pulse Rate 69 62 Respiratory Rate 16 16 Blood Pressure 170/75 H 148/78 H Pulse Oximetry 98 98 98 Oxygen Delivery Method Room Air Oxygen Flow Rate 0 Narrative Exam Narrative: General: Elderly female sitting in bed and in no acute distress, well-de veloped, well-nourished, advanced dementia at baseline but appropriately interactive otherwise. HEENT: Normocephalic, atraumatic. External ears without defect. Pupils equal, round, and reactive to light. Anicteric sclerae, moist conjunctivae, and no lid lag. Neck: Supple with full range of motion. No jugular venous distension. No lymphadenopathy or thyromegaly. Cardiovascular: Regular rate and rhythm without murmurs, rubs, or gallops appreciated Pulmonary: Clear to auscultation bilaterally without crackles, wheezes, or rhonchi. Normal respiratory effort with no use of accessory muscles. Abdomen: Soft, obese, bowel sounds present, nontender, nondistended. No hepatosplenomegaly or masses appreciated. Extremities: No clubbing, cyanosis, or edema. Skin: Normal temperature, turgor, and texture; no rash, ulcers, or subcutaneous nodules appreciated. Neurological: Cranial nerves grossly intact. Psychiatric: Normal mood and affect. Alert and oriented to person and place only. Advanced dementia at baseline with short and long-term memory recall deficit. Objective Labs Result Diagrams: 02/22/19 06:06 02/22/19 06:06 Labs: Laboratory Results - last 24 hr 02/22/19 02/22/19 02/22/19 06:06 06:06 06:06 WBC 3.3 L RBC 4.45 Hgb 12.0 Hct 36.9 MCV 82.9 MCH 27.0 MCHC 32.6 RDW 16.4 H Plt Count 235 Neut % (Auto) 40.5 L Lymph % (Auto) 38.5 Hunt % (Auto) 15.8 H Eos % (Auto) 4.0 Baso % (Auto) 1.2 Neut # (Auto) 1300 L Lymph # (Auto) 1300 Hunt # (Auto) 500 Eos # (Auto) 100 Baso # (Auto) 0 Sodium 137 Potassium 3.6 Chloride 104 Carbon Dioxide 27 BUN 22 H Creatinine 0.50 L Estimated GFR > 60.0 BUN/Creatinine Ratio 44.0 H Glucose 210 H Hemoglobin A1c 8.6 H Calcium 9.6 Discharge Plan Discharge Plan Patient Disposition: SNF Transfer to: [facility] Discharge Med Rec/Prescriptions Prescriptions: New losartan 25 mg Tablet 25 mg PO DAILY Qty: 30 RF: 0 acetaminophen 325 mg Tablet 650 mg PO Q6HR PRN (Reason: As Needed For Fever/Mild Pain) Qty: 30 RF: 0 bisacodyl 10 mg Suppository 10 mg AL DAILY PRN (Reason: Constipation) Qty: 30 RF: 0 Continued metformin [Glucophage XR] 500 MG tablet extended release 24 hr 500 mg PO DAILY Qty: 0 RF: 0 glipizide [Glucotrol XL] 5 MG tablet extended release 24hr 5 mg PO TID RF: 0 omeprazole 20 mg Capsule,Delayed Release(Dr/Ec) 40 mg PO DAILY RF: 0 timolol maleate 0.5 % drops 1 drp OPHTHALMIC (EYE) DIRECTED RF: 0 docusate sodium 100 mg Capsule 100 mg PO BID RF: 0 magnesium oxide 400 mg magnesium Tablet 400 mg PO DAILY RF: 0 Discontinued alprazolam [Xanax] 0.5 MG tablet 0 mg PO TID PRN (Reason: Anxiety) Qty: 0 RF: 0 Follow up/Referrals: Don John MD [Primary Care Provider] - Discharge Health Status Brief summary of current health status: Yasmine Manzano is an 83-year-old female patient with a past medical history significant for hypertension, diabetes mellitus type II non-insulin using, hypothyroidism and glaucoma who presented to the ED after being found down on the floor at her home and acutely delirious secondary to benzodiazepine misuse which have now been discontinued. No signs of benzodiazepine withdrawal and recommend continuing to monitor for the next several days. Patient has generalized weakness with chronic deconditioning and needs rehabilitation with continued physical and occupational therapy. Provider Discharge Instructions Diet: Diet as Tolerated, Carb-consistent/Diabetic, Low-fat, Low-sodium and Low- cholesterol Activity: Activity as tolerated with forward wheeled walker and PT/OT [facility] Rehab type: Physical therapy and Occupational therapy Discharge Data Primary Care Provider: Don John Quality VTE Deep Vein Thrombosis/Pulmonary Embolism Present on Admission: No
[2019-02-22] MEDS: TIMOLOL 0.5% OPHTH 1 DROPS EYE-BOTH (10:24)
[2019-02-22] MEDS: LOSARTAN 25 MG TABLET PO (10:25)
[2019-02-22] MEDS: ENOXAPARIN 40 MG/0.4 ML SYRINGE SUBCUT (10:25)
[2019-02-22 12:00] VITALS: BP 142/71; PULSE 61; RESP 18; O2SAT 99
--- NOTE | 2019-02-22 13:29 | PC.NURSE ---
Addendum entered by Joanne Betancur R.N. 02/22/19 13:32: pt concerned her wallet is lost in bed. Both NURSING HOME SOCIAL WORKER and I looked around room and no wallet was found. Daughter in law stated she doesn't think pt's wallet was on her at time of admission and will look at the house when able. Original Note: AM Shift pt alert and oriented to self. Pleasant, yet confused. Slightly impulsive, but does use the call light most of the time. No IV access. Tylenol for mild neck pain this AM. No appetite at lunch, pt stated she just ate when referring to her breakfast at 0800 when lunch was served at 1200. Up to the BR with 1PA-FWW. BM smear this AM. No issues voiding. Drinking ample fluids. Pending DC to [facility] (waiting for assessment).
--- NOTE | 2019-02-22 16:06 | CM.DPNOTE ---
DC Note: Mirian from [facility] completed bedside assessment today w/pt/spouse and family and decided to accept both pt and spouse today. Family conference w/[facility] staff facilitated by TO [place]. Dahlia further explained pt?s family had reported to her they asked pt/spouse's bank what would be required to assist in managing pt/spouse finances (?) answer is DPOA. Pt's spouse Giuliano is naming his son Christiano SARKAR today. P: DC to [facility] via cabulance today, pt/family agreeable to this plan. LTC plan- either remain at [facility] for upwards of $18,000 (per Gretchen) vs secure an assisted/memory care apt. for pt/spouse, family looking into options in anticipation that pt/spouse will not return home. TO [place]
--- NOTE | 2019-02-22 16:08 | CM.DPC ---
DCP Cont: Faxed discharge packet (signed meds, PASRR and discharge summary) to Gretchen Madrigal at fax # [phone]. Fax confirmation scanned in. Tanika Arambula Land Surveying Survey Worker
--- NOTE | 2019-02-22 16:12 | PC.NURSE ---
Report called to Karla at [facility]. Pt escorted out via W/C by cabulance. Packet given to [facility] staff. Pt left with all personal belongings in stable condition.
--- NOTE | 2019-02-28 13:49 | CM.DPNOTE ---
APS follow up SW received a call from ABELINO Alfredo ([phone]) after pt and spouse discharged to SNF to follow up on the APS report that this SW filed online. RADHA updated Sayda on pt and spouse d/c plan to SNF and additional information regarding concerns and family preference for d/c from SNF into assisted living. Sayda confirmed contact information for pt's son and DIL and will continue following up on the concerns. TO Michael
== END 2019-02-22 16:10 | DRG 917 ==
LOC: ED 02-19 00:56 → AC 02-19 03:22
PROVIDERS: Internal Medicine; Admitting Provider Nurse Practitioner Adult Health; Emergency Provider Emergency Medicine; Family Provider Family Medicine; PCP Family Medicine; Visit Provider Nurse Practitioner Adult Health
DX: T42.4X1A Poisoning by benzodiazepines, accidental (unintentional), initial encounter (principal); G92 Toxic encephalopathy; F03.91 Unspecified dementia, unspecified severity, with behavioral disturbance; F05 Delirium due to known physiological condition; R40.2362 Coma scale, best motor response, obeys commands, at arrival to emergency department; R40.2142 Coma scale, eyes open, spontaneous, at arrival to emergency department; R40.2242 Coma scale, best verbal response, confused conversation, at arrival to emergency department; E86.0 Dehydration; E11.9 Type 2 diabetes mellitus without complications; I49.8 Other specified cardiac arrhythmias; E03.9 Hypothyroidism, unspecified; I10 Essential (primary) hypertension; H40.9 Unspecified glaucoma; R53.1 Weakness; W18.30XA Fall on same level, unspecified, initial encounter; Z79.84 Long term (current) use of oral hypoglycemic drugs
CPT/HCPCS: 36415; 51701; 70450; 71045; 80048; 80053; 80305; 81001; 82009; 82550; 82962; 83036; 83605; 83735; 84443; 84484; 85025; 85610; 85730; 87040; 87086; 87633; 93005; 93010; 94760; 96361; 96365; 97116; 97162; 97165; 97530; 97535; 99284; 99285; J0696; J1650